=== PATIENT | male | born 2000 | race Caucasian/White ===

== ENCOUNTER 2024-08-11 11:36 | Inpatient (IN) | payer SELFPAY ==
[2024-08-11] VITALS (11 sets, daily range): BP systolic 106–146; BP diastolic 69–95; PULSE 80–100; RESP 14–18; TEMP 35.6–36.9; O2SAT 94–98; BMI 30.9; BMI 34.7
--- NOTE | 2024-08-11 12:43 | EDS_ITS ---
HPI <LILIA Tan - Last Filed: 08/11/24 15:48> History of Present Illness Chief Complaint: General Illness Narrative Narrative: Patient is a 24-year-old male with no significant medical history. Presenting to the emerged department for multiple complaints. Patient states that 3 to 4 days ago, the patient developed some blood blisters to his tongue, as well as the inner mucosa of his mouth. Patient states that some have went away but new keep appearing. Patient also states he has been having intermittent light nosebleeds over the last 3 to 4 days, as well as some blood in his urine. Patient went to [facility] who referred him to the emergency department. Patient denies any specific pain. Patient denies any back pain fever chills nausea or vomiting. Patient denies any history of any congenital diseases, blood disorders. PFSH <LILIA Tan - Last Filed: 08/11/24 15:48> PFSH Medical History no medical history Home Medications ?Medication ?Instructions ?Recorded ?Last Taken ?Type cholecalciferol (vitamin D3) PO DAILY supplement 08/11 Unknown History cyanocobalamin (vitamin B-12) PO DAILY 08/11/24 Unknow n History Allergy/AdvReac Type Severity Reaction Status Date / Time No Known Allergies Allergy Verified 08/11/24 11:37 Social History Smoking Status: Current every day smoker tobacco type: cigarettes ROS <LILIA Tan - Last Filed: 08/11/24 15:48> ROS ED ROS Narrative Constitutional: Negative for fever, chills, weight loss, weakness Eyes: Negative for vision loss, vision change, double vision ENT: Negative for any sore throat, ear pain, congestion. Positive for blood blisters to the tongue, inner cheeks, positive for epistaxis Cardiovascular: Negative for any chest pain, tightness, palpitations Respiratory: Negative for any cough, sputum production, hemoptysis, dyspnea, dyspnea on exertion, orthopnea Gastrointestinal: Negative for any abdominal pain, nausea, vomiting, diarrhea, constipation, blood in stool, blood in vomit : Negative for any urinary frequency, dysuria, retention, blood in urine Muscle skeletal: Negative for any neck pain, back pain Neurological: Negative for any headache, syncope, dizziness Skin: Negative for any rashes, itching, abrasions, lacerations Psychiatric: Negative for any depression, anxiety, stress, suicidal ideation, homicidal ideation Hematologic: Negative for any excessive bruising, easy bleeding EXAM <LILIA Tan - Last Filed: 08/11/24 15:48> Physical Exam Narrative Exam Narrative: Vital signs reviewed. HEET: Head normocephalic atraumatic, TMs clear bilaterally. Posterior pharynx is clear, moist mucous membranes. Nares showed dried blood. There is no active bleeding. Patient does have 2 blood blisters to the tongue, 1 to the left inner mucosa of the left cheek. I did look at pictures that he had on his phone, there were previous ones that have healed. Neck: Supple with no lymphadenopathy or tenderness. No signs of meningismus. Cardiac: Regular rate and rhythm no murmurs gallops or rubs, equal peripheral pulses bilaterally. Respiratory: Lungs clear to auscultation bilaterally. No chest tenderness. Abdomen: Soft, nontender, nondistended. No abdominal bruit or pulsatile masses. No hepatosplenomegaly Extremities: No peripheral edema, no signs of gross trauma or deformity. Active full range of motion of all extremities. Neuro: Cranial nerves II through XII intact, no focal neurological deficits. Skin: Clean dry and intact with no rash, purpura, petechiae, vesicles or pustules. Backs/flank: No CVA tenderness, no midline spinal tenderness, no deformity. Psych: Normal mood and affect. No SI, HI or acute psychosis. Const Vital Signs: 08/11/24 11:38 08/11/24 13:26 08/11/24 13:37 Temperature 98.3 F Temperature Source Oral Pulse Rate 89 80 Respiratory Rate 16 18 Respiratory Effort Normal Respiratory Pattern Normal Blood Pressure 140/87 H 135/88 H Blood Pressure Mean 104 103 Pulse Ox 98 98 Oxygen Delivery Method Room Air Room Air 08/11/24 15:00 Temperature Temperature Source Pulse Rate Respiratory Rate Respiratory Effort Respiratory Pattern Blood Pressure 125/73 H Blood Pressure Mean 89 Pulse Ox 96 Oxygen Delivery Method Positive well nourished and well developed General Appearance ED: well developed <Andrea Wilson MD - Last Filed: 08/11/24 18:25> Physical Exam Const Vital Signs: 08/11/24 11:38 08/11/24 13:26 08/11/24 13:37 Temperature 98.3 F Temperature Source Oral Pulse Rate 89 80 Respiratory Rate 16 18 Respiratory Effort Normal Respiratory Pattern Normal Blood Pressure 140/87 H 135/88 H Blood Pressure Mean 104 103 Pulse Ox 98 98 Oxygen Delivery Method Room Air Room Air 08/11/24 15:00 Temperature Temperature Source Pulse Rate Respiratory Rate Respiratory Effort Respiratory Pattern Blood Pressure 125/73 H Blood Pressure Mean 89 Pulse Ox 96 Oxygen Delivery Method MDM <Kenneth GarrettDIANAC - Last Filed: 08/11/24 15:48> [facility] Lab Data Labs: Laboratory Results - last 24 hr 08/11/24 08/11/24 12:15 13:31 WBC 8.3 RBC 4.70 Hgb 13.7 Hct 39.3 L MCV 83.6 MCH 29.1 MCHC 34.9 RDW Std Deviation 36.6 RDW Coeff of Kira 11.9 Plt Count < 2 L* MPV TNP Immature Gran % (Auto) 0.700 Neut % (Auto) 65.4 Lymph % (Auto) 20.4 [place] % (Auto) 10.4 H Eos % (Auto) 2.5 Baso % (Auto) 0.6 Absolute Neuts (auto) 5.4 Absolute Lymphs (auto) 1.70 Nucleated RBC % 0 Diff Path Review November foll PT 14.0 INR 1.1 APTT 26.2 Sodium 137 Potassium 3.8 Chloride 104 Carbon Dioxide 27.0 Anion Gap 5 BUN 11 Creatinine 0.92 Estim Creat Clear Calc 147.08 Est GFR (MDRD) Af Amer 127 Est GFR (MDRD) Non-Af 105 BUN/Creatinine Ratio 11.9 Glucose 99 Calcium 9.1 Total Bilirubin 1.00 AST 31 ALT 27 Alkaline Phosphatase 56 Total Protein 8.1 Albumin 4.2 Globulin 3.9 Albumin/Globulin Ratio 1.1 Urine Color Red Urine Clarity Turbid Urine pH 7.0 Ur Specific [place] 1.005 Urine Protein 500 H Urine Glucose (UA) Normal Urine Ketones Negative Urine Occult Blood 250 H Urine Nitrite Negative Urine Bilirubin Negative Urine Urobilinogen Normal Ur Leukocyte Esterase 100 H Urine RBC > 100 SEEN Urine WBC 0 SEEN Ur Squamous Epith Cells 0 SEEN Urine Bacteria 0 SEEN Urine Mucus 0 SEEN Treatment and Re-Evaluation :: Differential diagnosis includes however is not limited to: Thrombocytopenia, mouth trauma, mucosal dryness secondary to the weather, sinusitis Patient appears generally well, vital signs are stable, patient is nontoxic- appearing. Presenting to the emerged department for blood in his urine, nosebleeds and blood blisters to his mouth. Patient will receive a CBC, CMP, patient receive a urinalysis. Patient CBC showed hemoglobin 13.7, hematocrit 39.3, platelet count was less than 2, we did get a call from the laboratory. Patient's CMP was unremarkable, PTT, PT/INR will be ordered. Secondary this finding, I did reach out to Dr. Torres, he believes the patient will need to be admitted to the hospital. If the PTT/PT/INR are all within normal limits, the patient will receive 40 mg of IV dexamethasone as well as 1 unit of platelets. He did recommend admission. I did make the patient aware. Urinalysis did have some hematuria with occult blood 250, leukocyte Estrace 100, greater than 100 red blood cells. patient's coagulation panel shows a normal PTT, normal INR, normal APTT. At this time, patient will be admitted to the hospital. I did provide the patient with 40 mg of IV dexamethasone, as well as 1 unit of platelets. I spoke with the hospitalist to admit the patient. Patient was made aware. <Andrea Wilson MD - Last Filed: 08/11/24 18:25> [facility] MDM Narrative Medical decision making narrative: Dr. Wilson: I have personally performed a face to face assessment of the patient and have reviewed the DAVID Note. I performed a substantive portion of the visit including all aspects of the following. My patrick findings include: History is blood blisters in mouth and on tongue. Hematuria starting a few days ago, resolved then returned. Denies any significant past medical history, no increased bleeding. Started to have epistaxis as well. Exam is afebrile. Vital signs noted. Cardiovascular examination regular rate and rhythm. Lungs clear to auscultation bilaterally. Abdomen is soft and nontender without guarding or rebound. Positive bowel sounds. Neurological examination nonfocal and nonlateralizing. Skin examination does show blood blisters on tongue and and buccal mucosa. No other noted bleeding diathesis. Medical Decision Making: Differential diagnosis includes but not limited to liver failure with coagulopathy versus thrombocytopenia including ITP versus TTP. Check labs. Check UA. Given gross hematuria and thrombocytopenia, discussed with [facility] who recommended platelet transfusion and steroids. Does not require transfer currently. Discussed with hospitalist for admission. Disposition is admit in stable condition. Other additions or changes: [None] History & Record Review Discussion w/independent historian: Patient Lab Data Attestation: I reviewed the patient's lab results. Labs: Laboratory Results - last 24 hr 08/11/24 08/11/24 12:15 13:31 WBC 8.3 RBC 4.70 Hgb 13.7 Hct 39.3 L MCV 83.6 MCH 29.1 MCHC 34.9 RDW Std Deviation 36.6 RDW Coeff of Kira 11.9 Plt Count < 2 L* MPV TNP Immature Gran % (Auto) 0.700 Neut % (Auto) 65.4 Lymph % (Auto) 20.4 [place] % (Auto) 10.4 H Eos % (Auto) 2.5 Baso % (Auto) 0.6 Absolute Neuts (auto) 5.4 Absolute Lymphs (auto) 1.70 Nucleated RBC % 0 Diff Path Review May foll PT 14.0 INR 1.1 APTT 26.2 Sodium 137 Potassium 3.8 Chloride 104 Carbon Dioxide 27.0 Anion Gap 5 BUN 11 Creatinine 0.92 Estim Creat Clear Calc 147.08 Est GFR (MDRD) Af Amer 127 Est GFR (MDRD) Non-Af 105 BUN/Creatinine Ratio 11.9 Glucose 99 Calcium 9.1 Total Bilirubin 1.00 AST 31 ALT 27 Alkaline Phosphatase 56 Total Protein 8.1 Albumin 4.2 Globulin 3.9 Albumin/Globulin Ratio 1.1 Urine Color Red Urine Clarity Turbid Urine pH 7.0 Ur Specific [place] 1.005 Urine Protein 500 H Urine Glucose (UA) Normal Urine Ketones Negative Urine Occult Blood 250 H Urine Nitrite Negative Urine Bilirubin Negative Urine Urobilinogen Normal Ur Leukocyte Esterase 100 H Urine RBC > 100 SEEN Urine WBC 0 SEEN Ur Squamous Epith Cells 0 SEEN Urine Bacteria 0 SEEN Urine Mucus 0 SEEN Management Discussion w/another healthcare provider: Hospitalist and Epidemiology Internship Discharge Plan Dx/Rx/DC Orders Clinical Impression: Thrombocytopenia, Petechiae, Hematuria, Epistaxis Disposition Disposition: Acute Care Hospital [facility] Discharge Date/Time: 08/11/24 18:13
[2024-08-11 13:11] LABS: Absolute Neutrophil Count 5.4 X10^3/uL (2.0-7.7); Basophil# 0.05 X10^3/uL; Basophil% 0.6 % (0-1); Eosinophil# 0.21 X10^3/uL; Eosinophils% 2.5 % (0-5); Hematocrit 39.3 % (40-54); Hemoglobin 13.7 g/dL (13.0-16.5); Lymphocyte % 20.4 % (19-41); Mean Corp Hgb Conc 34.9 g/dL (32-36); Mean Corpuscular Hgb 29.1 pg (27.0-32.0); Mean Corpuscular Volume 83.6 fL (80-94); Monocyte# 0.87 X10^3/uL; Monocyte% 10.4 % (0-10); NRBC Flagged by Analyzer 0 % (0-5); Neutrophil # 5.44 X10^3/uL (2.7-7.7); Neutrophil % 65.4 % (47-70); POSITIVE COUNT YES; RBC Distribution Width CV 11.9 % (11.6-14.6); RBC Distribution Width SD 36.6 fl (35.1-43.9); White Blood Count 8.3 K/mm3 (4.4-11.0)
[2024-08-11 13:38] LABS: Bacteria 0 SEEN /hpf (None Seen); Mucous, Urine 0 SEEN /hpf (<or=2+); Squamous Epithelial Cells - UA 0 SEEN /hpf (0-5); White Blood Cells 0 SEEN /hpf (0-5)
[2024-08-11 13:44] LABS: Differential Indicated SCAN CRITERIA MET; Platelet Count < 2 K/mm3 (150-450)
[2024-08-11 13:48] LABS: Color, Urine Red (Yellow); Glucose, Dipstick Normal (Normal); Ketone-Dipstick Negative (Negative); Leukocyte Esterase-Dipstick 100 /ul (Negative); Nitrite-Dipstick Negative (Negative); Occult Blood-Urine 250 /ul (Negative); Protein-Dipstick 500 mg/dl (Negative); Specific Gravity, Urine 1.005 (1.002-1.030); Urine Bilirubin Dipstick Negative (Negative); Urine Clarity Turbid (Clear); Urine Urobilinogen Normal (Normal)
[2024-08-11 14:00] LABS: Red Blood Cells-Urine > 100 SEEN /hpf (0-5)
[2024-08-11 14:08] LABS: ALB/GLOB Ratio 1.1 RATIO (0.9-2.4); AST(SGOT) 31 U/L (15-37); Alanine Aminotransfer ALT/SGPT 27 U/L (16-61); Albumin, Serum 4.2 g/dL (3.2-5.0); Alkaline Phosphatase 56 U/L (45-117); Anion Gap 5 (5-15); BUN 11 mg/dL (7-18); BUN/Creat Ratio 11.9 RATIO (10-20); Calcium,Total 9.1 mg/dL (8.5-10.1); Chloride 104 mmol/L (98-107); Creatinine, Serum 0.92 mg/dL (0.70-1.30); EST Glomerular Filtration Rate 105 mL/min (>60); Est Glom Filt Rate - Afr Amer 127 mL/min (>60); Estimated Creatinine Clearance 147.08 ml/min; Globulin 3.9 g/dL (2.2-4.2); Glucose 99 mg/dL (74-106); Potassium 3.8 mmol/L (3.5-5.1); Protein, Total 8.1 g/dL (6.4-8.2); Sodium Level 137 mmol/L (136-145)
[2024-08-11 15:21] LABS: International Normalized Ratio 1.1
[2024-08-11 15:22] LABS: Partial Thromboplast Time 26.2 Seconds (24.1-36.2)
--- NOTE | 2024-08-11 15:39 | PCM.HP.STD ---
[facility] - General General Date of Service: 08/11/24 Chief Complaint: Nosebleeds and hematuria HPI Narrative JOI MORRIS, is a 24 M who presented to [facility] ED on 08/11/2024 with recent nosebleeds and hematuria. On labs he was found to have a platelet count less than 2. Patient has no significant past medical history. Lives in [place] with his family. Denies any family history of bleeding issues that he is aware of. States that on Wednesday he had a nosebleed and noticed that he had some small blood blisters in his mouth. He then noticed blood in the urine starting yesterday and continuing into today, so he came in for further evaluation. In the ED he was hemodynamically stable on room air. Hemoglobin 13.7, WBC count 8.3, INR 1.1, PT 14.0 (normal). CMP was normal. UA showed 500 protein, 250 blood with greater than 100 RBCs, 100 leukocyte esterase, 0 bacteria. Case was discussed with Dr. Torres who recommended giving patient a dose of IV Decadron 40 mg and a unit of platelets. He also recommended admission for further management, so hospitalist was contacted. I saw the patient at bedside in the ED. He was sitting up comfortably in bed, conversing normally, in no acute distress. Denies any recent illnesses. Feeling well currently, denies any acute concerns. Will be admitted for further management. [facility] Medical History no medical history Home Medications ?Medication ?Instructions ?Recorded ?Last Taken ?Type cholecalciferol (vitamin D3) PO DAILY supplement 08/11/24 Unknown History cyanocobalamin (vitamin B-12) PO DAILY 08/11/24 Unknown History Allergy/AdvReac Type Severity Reaction Status Date / Time No Known Allergies Allergy Verified 08/11/24 11:37 Social History Smoking Status: Current every day smoker tobacco type: cigarettes ROS Constitutional Constitutional: Denies chills, fatigue, fever(s) or weakness Eyes Eyes: Denies change in vision ENT HEENT: Reports epistaxis; Denies nasal congestion, nasal discharge or sore throat Cardiovascular Cardiovascular: Denies chest pain Respiratory/Chest Respiratory/Chest: Denies shortness of breath at rest Gastrointestinal Gastrointestinal: Denies abdominal pain Genitourinary Genitourinary: Reports hematuria; Denies dysuria Musculoskeletal Musculoskeletal: Denies arthralgias or myalgias Neurologic Neurologic: Denies dizziness or headache(s) Hematologic/Lymphatic Hematologic/Lymphatic: Reports easy bleeding Vital Signs Vital Signs Vital Signs: 08/11/24 11:38 08/11/24 13:26 08/11/24 13:37 Temperature 98.3 F Temperature Source Oral Pulse Rate 89 80 Respiratory Rate 16 18 Respiratory Effort Normal Respiratory Pattern Normal Blood Pressure 140/87 H 135/88 H Blood Pressure Mean 104 103 Pulse Ox 98 98 Oxygen Delivery Method Room Air Room Air 08/11/24 15:00 Temperature Temperature Source Pulse Rate Respiratory Rate Respiratory Effort Respiratory Pattern Blood Pressure 125/73 H Blood Pressure Mean 89 Pulse Ox 96 Oxygen Delivery Method Weight Weight: 100.698 kg Body Mass Index (BMI) 30.9 Physical Exam Const alert, oriented x3, no apparent distress, healthy appearing and well nourished Constitutional Narrative: Pleasant young male, class I obesity, sitting up comfortably in bed, conversing normally, in no acute distress. General Appearance: cooperative, comfortable, well kempt and well developed HEENT normocephalic, head/scalp atraumatic, hearing grossly normal bilaterally, nasal mucous membranes and turbinates normal and moist oral mucous membranes HEENT Narrative: Dried blood noted in the right nostril. Eyes PERRL, EOMs intact bilaterally and conjunctivae normal Neck full ROM Chest inspection of chest normal Resp normal respiratory effort, normal air movement, no use of accessory muscles and clear to auscultation bilaterally Cardio regular rate, regular rhythm, no murmurs and peripheral pulses 2+ throughout GI normal to inspection, nondistended, normoactive bowel sounds, soft to palpation, non-tender and non-distended Back/Spine normal ROM Extremity normal to inspection, full ROM and no pedal edema Skin no rashes or lesions noted Neuro moves all extremities and no focal motor deficits Speech: speech normal Motor Exam: strength 5/5 throughout Psych mental status grossly normal Results Lab / Micro Data 08/11/24 12:15 08/11/24 12:15 Labs: Laboratory Results - last 24 hr 08/11/24 12:15: WBC 8.3, RBC 4.70, Hgb 13.7, Hct 39.3 L, MCV 83.6, MCH 29.1, MCHC 34.9, RDW Std Deviation 36.6, RDW Coeff of Kira 11.9, Plt Count < 2 L*, MPV TNP, Immature Gran % (Auto) 0.700, Neut % (Auto) 65.4, Lymph % (Auto) 20.4, [place] % (Auto) 10.4 H, Eos % (Auto) 2.5, Baso % (Auto) 0.6, Absolute Neuts (auto) 5.4, Absolute Lymphs (auto) 1.70, Nucleated RBC % 0, Diff Path Review November foll, PT 14.0, INR 1.1, APTT 26.2, Sodium 137, Potassium 3.8, Chloride 104, Carbon Dioxide 27.0, Anion Gap 5, BUN 11, Creatinine 0.92, Estim Creat Clear Calc 147.08, Est GFR (MDRD) Af Amer 127, Est GFR (MDRD) Non-Af 105, BUN/Creatinine Ratio 11.9, Glucose 99, Calcium 9.1, Total Bilirubin 1.00, AST 31, ALT 27, Alkaline Phosphatase 56, Total Protein 8.1, Albumin 4.2, Globulin 3.9, Albumin/Globulin Ratio 1.1 08/11/24 13:31: Urine Color Red, Urine Clarity Turbid, Urine pH 7.0, Ur Specific [place] 1.005, Urine Protein 500 H, Urine Glucose (UA) Normal, Urine Ketones Negative, Urine Occult Blood 250 H, Urine Nitrite Negative, Urine Bilirubin Negative, Urine Urobilinogen Normal, Ur Leukocyte Esterase 100 H, Urine RBC > 100 SEEN, Urine WBC 0 SEEN, Ur Squamous Epith Cells 0 SEEN, Urine Bacteria 0 SEEN, Urine Mucus 0 SEEN Assessment & Plan Assessment/Plan (1) Thrombocytopenia: (2) Hematuria: PLAN: Plan Patient is a 24-year-old male who presented [facility] ED on 08/11/2024 with nosebleeds and hematuria. 1. New onset severe thrombocytopenia with epistaxis and hematuria ? Admit under inpatient status to PCU. Hematology consulted. Platelet count less than 2 on admit, CBC otherwise unremarkable. Unclear etiology at this time. No recent infections, no drug exposures, no liver disease noted. No concern for concurrent thrombosis. ITP is certainly a possibility. Presume that hematuria is secondary to very low platelet count. HIV and hepatitis C ordered. Vitamin B12, folate ordered. Given dose of IV Decadron 40 mg in the ED and unit of platelets ordered. Follow-up a.m. CBC. Appreciate further hematology recommendations. 2. Class I obesity ? BMI 31 on admit. Encouraged lifestyle medications. DVT prophylaxis: SCDs CODE STATUS: Full code, verified Expected disposition: Home, 2 to 3 days Total clinical time spent by myself addressing the patient's medical issues, reviewing all the data, and collaborating with patient's care team: 55 minutes. Charges/Coding Visit Charges Inpatient E&M: 53813 Init Hosp L2
[2024-08-11] MEDS: dexAMETHasone 20 MG/5 ML Vial 40 MG IV (15:43)
--- NOTE | 2024-08-11 18:11 | CASEMGMT ---
Care Management Face to Face with patient for initial transition planning/care coordination assessment in the ED. 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. Patient alert and oriented. Patient willing to participate in assessment and is able to answer all questions appropriately. Care providers, pharmacy, and demographics verified. Admitting Diagnosis: New onset severe thrombocytopenia with epistaxis and hematuria Other diagnosis history: no significant medical hx PCP: none, but accepted resources. Specialists: none Preferred Pharmacy: [facility] Insurance: none; denied need for Medicaid application. Prescription Benefit: none Living Will/HPOA: none, denied need for information, but did request to be educated on what advance directives were (which was done). LNOK: parents, Clement and Mia Yañez (currently living in [place]). No siblings. Living Arrangements: by self, 1 story home, no steps to enter. Independent with all ADLs Transportation: drives self DME: none HHC: none SNF/Rehab: none Community Resources: none Behavioral Health History: denies. Patient goals: Patient wishes to discharge home, denies need for home health care at this time. Patient states he has no further needs or concerns at this time. Disposition Plan: admission to acute; RN CM/SW to follow for discharge planning needs that may arise. Jyotsna Bergeron, ENTERTAINMENT DANCER, VOCATIONAL PLACEMENT SPECIALIST
[2024-08-11] MEDS: Immune Globulin 20 gm 20 GM/200 ML VIAL IV (23:15)
[2024-08-12] VITALS (7 sets, daily range): BP systolic 111–137; BP diastolic 62–72; PULSE 88–106; RESP 16; TEMP 35.7–36.8; O2SAT 95–98
[2024-08-12] MEDS: Immune Globulin 20 gm 20 GM/200 ML VIAL IV ×3 (01:45→19:35)
[2024-08-12] MEDS: Immune Globulin 10 gm 10 GM/100 ML VIAL IV ×5 (03:49→23:43)
[2024-08-12] MEDS: Immune Globulin 5 GM 5 GM/50 ML VIAL IV (04:19)
[2024-08-12 05:57] LABS: Absolute Lymphocyte Count 0.64 X10^3/uL (0.83-4.51); Absolute Neutrophil Count 8.3 X10^3/uL (2.0-7.7); Eosinophil# 0.01 X10^3/uL; Eosinophils% 0.1 % (0-5); Hematocrit 36.1 % (40-54); Hemoglobin 12.7 g/dL (13.0-16.5); Lymphocyte # 0.64 X10^3/ul (0.83-4.51); Mean Corp Hgb Conc 35.2 g/dL (32-36); Mean Corpuscular Hgb 29.1 pg (27.0-32.0); Mean Corpuscular Volume 82.6 fL (80-94); Monocyte# 0.17 X10^3/uL; Monocyte% 1.8 % (0-10); NRBC Flagged by Analyzer 0 % (0-5); Neutrophil % 90.3 % (47-70); POSITIVE COUNT YES; RBC Distribution Width CV 11.9 % (11.6-14.6); RBC Distribution Width SD 35.1 fl (35.1-43.9); Red Blood Count 4.37 M/mm3 (4.6-6.2); White Blood Count 9.2 K/mm3 (4.4-11.0)
[2024-08-12 06:03] LABS: Differential Indicated SCAN CRITERIA MET; Platelet Count 2 K/mm3 (150-450)
[2024-08-12 06:35] LABS: Anion Gap 7 (5-15); BUN 12 mg/dL (7-18); BUN/Creat Ratio 10.3 RATIO (10-20); Chloride 103 mmol/L (98-107); Creatinine, Serum 1.16 mg/dL (0.70-1.30); EST Glomerular Filtration Rate 81 mL/min (>60); Est Glom Filt Rate - Afr Amer 98 mL/min (>60); Estimated Creatinine Clearance 123.33 ml/min; Glucose 314 mg/dL (74-106); Potassium 3.8 mmol/L (3.5-5.1); Sodium Level 134 mmol/L (136-145)
[2024-08-12] MEDS: 0.9% Normal Saline (1000mL) 1,000 ML 100 ML IV ×2 (06:53→17:03)
[2024-08-12 07:10] LABS: Platelet Estimate MKD DEC (ADEQ)
--- NOTE | 2024-08-12 07:58 | PCM.PN.HOSP ---
Reason for Visit Reason for Visit: Diagnoses Thrombocytopenia, unspecified (08/11/24) Hematuria, unspecified (08/11/24) Objective Data Objective Data Vital Signs: Vital Signs Temp Pulse Resp BP Pulse Ox O2 Del Method 96.8 F L 88 16 112/67 97 Room Air 08/12/24 04:00 08/12/24 04:00 08/12/24 04:00 08/12/24 04:00 08/12/24 04:00 08/12/24 04:00 Oxygen Delivery Method Room Air Weight: 249 lb Body Mass Index (BMI) 34.7 Intake & Output: Intake and Output for Last 24 Hours 08/10/24 08/11/24 08/12/24 23:59 23:59 23:59 Intake Total 35 / 35 730.00 / 730.00 Balance 35 / 35 730.00 / 730.00 Lab / Micro Data 08/12/24 03:47 08/12/24 03:47 Labs: Laboratory Results - last 24 hr 08/11/24 12:15: WBC 8.3, RBC 4.70, Hgb 13.7, Hct 39.3 L, MCV 83.6, MCH 29.1, MCHC 34.9, RDW Std Deviation 36.6, RDW Coeff of Kira 11.9, Plt Count < 2 L*, MPV TNP, Immature Gran % (Auto) 0.700, Neut % (Auto) 65.4, Lymph % (Auto) 20.4, [place] % (Auto) 10.4 H, Eos % (Auto) 2.5, Baso % (Auto) 0.6, Absolute Neuts (auto) 5.4, Absolute Lymphs (auto) 1.70, Nucleated RBC % 0, Diff Path Review November, PT 14.0, INR 1.1, APTT 26.2, Sodium 137, Potassium 3.8, Chloride 104, Carbon Dioxide 27.0, Anion Gap 5, BUN 11, Creatinine 0.92, Estim Creat Clear Calc 147.08, Est GFR (MDRD) Af Amer 127, Est GFR (MDRD) Non-Af 105, BUN/Creatinine Ratio 11.9, Glucose 99, Calcium 9.1, Total Bilirubin 1.00, AST 31, ALT 27, Alkaline Phosphatase 56, Total Protein 8.1, Albumin 4.2, Globulin 3.9, Albumin/Globulin Ratio 1.1, Folate 70.10 H 08/11/24 13:31: Urine Color Red, Urine Clarity Turbid, Urine pH 7.0, Ur Specific [place] 1.005, Urine Protein 500 H, Urine Glucose (UA) Normal, Urine Ketones Negative, Urine Occult Blood 250 H, Urine Nitrite Negative, Urine Bilirubin Negative, Urine Urobilinogen Normal, Ur Leukocyte Esterase 100 H, Urine RBC > 100 SEEN, Urine WBC 0 SEEN, Ur Squamous Epith Cells 0 SEEN, Urine Bacteria 0 SEEN, Urine Mucus 0 SEEN 08/11/24 15:41: Blood Type A NEGATIVE 08/12/24 03:47: WBC 9.2, RBC 4.37 L, Hgb 12.7 L, Hct 36.1 L, MCV 82.6, MCH 29.1, MCHC 35.2, RDW Std Deviation 35.1, RDW Coeff of Kira 11.9, Plt Count 2 L*, MPV TNP, Immature Gran % (Auto) 0.800, Neut % (Auto) 90.3 H, Lymph % (Auto) 7.0 L, [place] % (Auto) 1.8, Eos % (Auto) 0.1, Baso % (Auto) 0.0, Absolute Neuts (auto) 8.3 H, Absolute Lymphs (auto) 0.64 L, Nucleated RBC % 0, Diff Path Review November, Platelet Estimate MKD DEC, Sodium 134 L, Potassium 3.8, Chloride 103, Carbon Dioxide 24.0, Anion Gap 7, BUN 12, Creatinine 1.16, Estim Creat Clear Calc 123.33, Est GFR (MDRD) Af Amer 98, Est GFR (MDRD) Non-Af 81, BUN/Creatinine Ratio 10.3, Glucose 314 H, Calcium 9.0 Physical Exam Narrative Seen and examined. Patient denies any chronic autoimmune condition in the family. Does not have personal medical history. He had flulike symptoms about 3 weeks ago with mild cough muscle aches, nausea and diarrhea which got resolved Physical exam General: Alert, Oriented x3, Cooperative. BMI 34.7 kg/m? HEENT: Atraumatic, PERRLA, EOMI, Normocephalic Oral: No Gingival or Mucosal Lesions/ Ulcerations Neck: Supple, No JVD, Negative Carotid Bruits Chest wall/Lungs: Air entry diminished in bilateral lung bases. No crepitation/rhonchi Cardiovascular: Regular rate, Regular Rhythm, Normal S1, Normal S2, No M/G/R Abdomen: Bowel Sounds Present, Soft, Non Tender, Non-Distended : No dysuria. No renal angle tenderness. No suprapubic tenderness. Extremities: No edema, Capillary Refill Less than 3 Seconds Skin: Petechial rash from thigh distally. Not in other part of the body Musculoskeletal: No Tenderness to Palpation of Joints or Extremities Neurological: Cranial nerves II-XII grossly intact, DTR 2+/4. No acute focal neurological deficit. Psych/Mental Status: Normal Affect, Appropriate. Assessment & Plan Assessment/Plan (1) Thrombocytopenia: (2) Hematuria: PLAN: Plan Patient is a 24-year-old male who presented [facility] ED on 08/11/2024 with nosebleeds and hematuria. 1. New onset severe thrombocytopenia with epistaxis and hematuria and petechial rash in lower extremities ? Admit under inpatient status to PCU. Hematology consulted. Platelet count less than 2 on admit, CBC otherwise unremarkable. Had a recent flulike infection about 3 weeks ago but has resolved now. Denies personal autoimmune disease. No concern for concurrent thrombosis. ITP is certainly a possibility. Presume that hematuria is secondary to very low platelet count. HIV and hepatitis C ordered. Vitamin B12, folate ordered. Given dose of IV Decadron 40 mg in the ED and unit of platelets ordered. Follow-up a.m. CBC. Appreciate further hematology recommendations. 08/12: Patient's blood Adtralza still 1999. Probably did not get the platelet transfusion yet. On dexamethasone 40 mg daily. On PPI protection. 2. Class I obesity ? BMI 31 on admit. Encouraged lifestyle medications. DVT prophylaxis: SCDs CODE STATUS: Full code, verified Charges/Coding Visit Charges Inpatient E&M: 91490 Subs Hosp L2
[2024-08-12] MEDS: dexAMETHasone 4 MG Tablet 40 MG PO (09:47)
[2024-08-12] MEDS: Pantoprazole Sodium 40 MG Tablet PO (09:47)
[2024-08-12 10:41] LABS: Vitamin B12 750 pg/mL (211-911)
[2024-08-12 11:06] LABS: HIV - WCH Non-Reactive (Nonreactive)
[2024-08-12 17:28] LABS: Absolute Lymphocyte Count 0.77 X10^3/uL (0.83-4.51); Absolute Neutrophil Count 16.7 X10^3/uL (2.0-7.7); Basophil# 0.03 X10^3/uL; Basophil% 0.2 % (0-1); Hematocrit 33.8 % (40-54); Hemoglobin 12.3 g/dL (13.0-16.5); Lymphocyte # 0.77 X10^3/ul (0.83-4.51); Lymphocyte % 4.2 % (19-41); Mean Corp Hgb Conc 36.4 g/dL (32-36); Mean Corpuscular Hgb 29.7 pg (27.0-32.0); Mean Corpuscular Volume 81.6 fL (80-94); Mean Platelet Vol. 14.1 fl (6.2-12.0); Monocyte# 0.51 X10^3/uL; Monocyte% 2.8 % (0-10); NRBC Flagged by Analyzer 0 % (0-5); Neutrophil # 16.73 X10^3/uL (2.7-7.7); POSITIVE COUNT YES; RBC Distribution Width SD 35.2 fl (35.1-43.9); Red Blood Count 4.14 M/mm3 (4.6-6.2); White Blood Count 18.2 K/mm3 (4.4-11.0)
--- NOTE | 2024-08-12 17:30 | CON.PCM.ON_ITS ---
Assessment & Plan Assessment/Plan (1) Thrombocytopenia: Status: Acute Code(s): D69.6 - Thrombocytopenia, unspecified Plan: 24-year-old male with acute severe isolated thrombocytopenia, patient reported stomach virus with diarrhea 3 weeks earlier for which he used [id number] Pepto-Bismol but no other medications. Patient presents with purpura, oral mucosal purpura, hematuria and melena but is hemodynamically stable. 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 High-dose Decadron 40 mg daily were started August 11, 2024 in the emergency room, the first dose was given IV, the plan is for a total of 4 days of high-dose Decadron (last dose will be August 14, 2024). 2. Platelet transfusion for platelets less than 10K. 3. IVIG (1 g/kg body weight) the patient received day 1 the night of August 11 into the early hours of August 12 morning. If there is no response we will repeat the same dose this evening of August 12, 2024. If there is still no response after 2 days of IVIG that diagnosis of ITP will be revisited. And further workup including bone marrow biopsy will be warranted. 4. IV fluids ordered for 24 hours and patient encouraged to maintain good water intake to avoid clot retention. Patient was seen with his family, impression and plan discussed. Jorge Torres MD Shotgun Shell Assembly Machine Operator, [facility] Divisions of Medical Oncology & Hematology Department of Internal Medicine [place] [phone] This note was generated using a voice recognition system software. Although it was reviewed by the author prior to finalization, it may still contain incorrect words, spelling, and punctuation that were not noted when reviewing prior to saving. If a clinically significant typo or inaccurately typed phrase is noted, please notify the author. HPI Consult Data Date of Service:: 08/12/24 PCP / Referring Provider: No Primary Care Phys Attending: Dr. Marc Amaya MD Chief Complaint Chief Complaint: Bruises, epistaxis, bloodstained gum, hematuria and melena History of Present Illness History of Present Illness: 24-year-old male who was in his usual state of health until some 3 weeks earlier when he developed an acute stomach virus with diarrhea that lasted for a few days, self treated with [id number] Pepto-Bismol and resolved. Over the few days prior to his hospitalization on August 11, 2024 he noticed excessive bruising, bruising on his gums, nosebleed, hematuria and melena. Throughout the illness he has had no fevers, no headaches or EQUINE VET symptoms. Advanced Directives Power of Pound Attendant: No Living Will: No PFSH Medical History no medical history Home Medications ?Medication ?Instructions ?Recorded ?Last Taken ?Type cholecalciferol (vitamin D3) PO DAILY supplement 08/11 Unknown History cyanocobalamin (vitamin B-12) PO DAILY 08/11/24 Unknow n History Allergy/AdvReac Type Severity Reaction Status Date / Time No Known Allergies Allergy Verified 08/11/24 11:37 Social History Smoking Status: Current every day smoker tobacco type: cigarettes ROS Constitutional Constitutional: Denies chills, fatigue or fever(s) ENT HEENT: Reports other Details: See HPI Cardiovascular Cardiovascular: Denies dyspnea Respiratory/Chest Respiratory/Chest: Denies hemoptysis Gastrointestinal Gastrointestinal: Reports melena; Denies abdominal pain, diarrhea or nausea Genitourinary Genitourinary: Reports change in urinary stream and hematuria Musculoskeletal Musculoskeletal: Denies extremity pain or muscle weakness Integumentary Integumentary: Reports unusual bruising Neurologic Neurologic: Denies abnormal speech, focal weakness, headache(s), numbness or other visual disturbances Hematologic/Lymphatic Hematologic/Lymphatic: Reports easy bleeding and easy bruising; Denies lymphadenopathy Physical Exam Narrative ECOG 0 Const alert, oriented x3 and no apparent distress General Appearance: cooperative Nutritional Appearance: obese HEENT HEENT Narrative: Oral mucosa purpura Eyes no scleral icterus Neck no lymphadenopathy Lymph Lymphatic: no lymphadenopathy noted GI soft to palpation, non-tender and no masses Palpation: Negative for splenomegaly Extremity no clubbing, cyanosis or edema Skin General Skin Exam: ecchymosis and petechiae Neuro CN's II-XII intact bilaterally, moves all extremities and no focal motor deficits Psych mental status grossly normal Vital Signs Temperature 98 F 08/12/24 15:39 Temperature Source Oral 08/12/24 15:39 Pulse Rate 100 08/12/24 15:39 Pulse Strength Weak (1+) 08/12/24 10:00 Respiratory Rate 16 08/12/24 15:39 Respiratory Effort Normal, Non-Labored 08/12/24 15:06 Respiratory Depth Normal 08/12/24 15:06 Respiratory Pattern Normal 08/12/24 15:06 Blood Pressure 122/68 H 08/12/24 15:39 Blood Pressure Mean 86 08/12/24 15:39 Blood Pressure Source Monitor 08/12/24 15:39 Blood Pressure Position Semi-Fowlers 08/12/24 15:39 Blood Pressure Location Right Forearm 08/12/24 15:39 Pulse Ox 97 08/12/24 15:39 Oxygen Delivery Method Room Air 08/12/24 15:39 Laboratory Results - last 24 hr 08/11/24 12:15: Folate 70.10 H 08/11/24 15:41: Blood Type A NEGATIVE 08/11/24 18:05: Vitamin B12 750, HIV 1&2 Antibody Non-Reactive 08/12/24 03:47: WBC 9.2, RBC 4.37 L, Hgb 12.7 L, Hct 36.1 L, MCV 82.6, MCH 29.1, MCHC 35.2, RDW Std Deviation 35.1, RDW Coeff of Kira 11.9, Plt Count 2 L*, MPV TNP, Immature Gran % (Auto) 0.800, Neut % (Auto) 90.3 H, Lymph % (Auto) 7.0 L, [place] % (Auto) 1.8, Eos % (Auto) 0.1, Baso % (Auto) 0.0, Absolute Neuts (auto) 8.3 H, Absolute Lymphs (auto) 0.64 L, Nucleated RBC % 0, Diff Path Review November, Platelet Estimate MKD DEC, Sodium 134 L, Potassium 3.8, Chloride 103, Carbon Dioxide 24.0, Anion Gap 7, BUN 12, Creatinine 1.16, Estim Creat Clear Calc 123.33, Est GFR (MDRD) Af Amer 98, Est GFR (MDRD) Non-Af 81, BUN/Creatinine Ratio 10.3, Glucose 314 H, Calcium 9.0 Peripheral blood smear reviewed by myself shows virtual absence of platelets, normal erythroid and myeloid elements, no immature forms Laboratory Results 08/12/24 08/11/24 03:47 12:15 WBC 9.2 8.3 Hgb 12.7 L 13.7 Plt Count 2 L* < 2 L* PT 14.0 APTT 26.2 Creatinine 1.16 0.92
[2024-08-12 17:40] LABS: Platelet Count 17 K/mm3 (150-450)
[2024-08-12 17:45] LABS: Platelet Estimate MKD DEC (ADEQ); Red Cell Morphology NORM C+C NORMAL (NORM C&C)
[2024-08-12 17:46] LABS: Differential Indicated SCAN CRITERIA MET
[2024-08-13] MEDS: Immune Globulin 10 gm 10 GM/100 ML VIAL IV ×3 (00:15→01:36)
[2024-08-13 03:00] VITALS: BP 119/68; PULSE 81; RESP 16; TEMP 35.9; O2SAT 97
[2024-08-13 06:36] LABS: Absolute Lymphocyte Count 0.99 X10^3/uL (0.83-4.51); Absolute Neutrophil Count 14.6 X10^3/uL (2.0-7.7); Basophil# 0.03 X10^3/uL; Basophil% 0.2 % (0-1); Hematocrit 33.1 % (40-54); Lymphocyte # 0.99 X10^3/ul (0.83-4.51); Mean Corp Hgb Conc 36.3 g/dL (32-36); Mean Corpuscular Hgb 30.8 pg (27.0-32.0); Mean Corpuscular Volume 84.9 fL (80-94); Monocyte# 0.79 X10^3/uL; Monocyte% 4.8 % (0-10); NRBC Flagged by Analyzer 0 % (0-5); Neutrophil # 14.56 X10^3/uL (2.7-7.7); Neutrophil % 88.2 % (47-70); POSITIVE COUNT YES; RBC Distribution Width CV 12.1 % (11.6-14.6); RBC Distribution Width SD 36.4 fl (35.1-43.9); White Blood Count 16.5 K/mm3 (4.4-11.0)
[2024-08-13 06:42] LABS: Differential Indicated SCAN CRITERIA MET; Platelet Count 44 K/mm3 (150-450)
--- NOTE | 2024-08-13 06:51 | NURSING ---
platelets of [address] higgins, he stated patient can be d/c tomorrow, on 08/14 after his decadron dose is given with a one week follow up
[2024-08-13 07:14] LABS: Pathologist Review May foll; Platelet Estimate MKD DEC (ADEQ)
[2024-08-13 08:07] LABS: HEPATITIS B SURFACE AG Negative (Negative); Hep C Antibodies Non Reactive (Non Reactive); Hepatitis A IgM Antibody Negative (Negative); Hepatitis B Core AB IgM Negative (Negative)
[2024-08-13 09:00] VITALS: BP 124/72; PULSE 74; RESP 14; TEMP 36.4; O2SAT 95
[2024-08-13] MEDS: dexAMETHasone 4 MG Tablet 40 MG PO (09:04)
[2024-08-13] MEDS: Pantoprazole Sodium 40 MG Tablet PO (09:04)
[2024-08-13] MEDS: 0.9% Normal Saline (1000mL) 1,000 ML 100 ML IV (09:38)
--- NOTE | 2024-08-13 13:13 | PCM.PN.HOSP ---
Reason for Visit Reason for Visit: Diagnoses Thrombocytopenia, unspecified (08/11/24) Hematuria, unspecified (08/11/24) Objective Data Objective Data Vital Signs: Vital Signs Temp Pulse Resp BP Pulse Ox O2 Del Method 97.6 F L 74 14 124/72 H 95 Room Air 08/13/24 09:00 08/13/24 09:00 08/13/24 09:00 08/13/24 09:00 08/13/24 09:00 08/13/24 09:00 Oxygen Delivery Method Room Air Weight: 249 lb Body Mass Index (BMI) 34.7 Intake & Output: Intake and Output for Last 24 Hours 08/11/24 08/12/24 08/13/24 23:59 23:59 23:59 Intake Total 35 / 35 2821.75 / 2821.75 1121.67 / 1121.67 Balance 35 / 35 2821.75 / 2821.75 1121.67 / 1121.67 Lab / Micro Data 08/13/24 05:57 08/12/24 03:47 Labs: Laboratory Results - last 24 hr 08/11/24 18:05: Hepatitis A IgM Ab Negative, Hep Bs Antigen Negative, Hep B Core IgM Ab Negative, Hepatitis C Ab (EIA) Non Reactive, Hep C Ab Comment Comment 08/12/24 17:12: WBC 18.2 H, RBC 4.14 L, Hgb 12.3 L, Hct 33.8 L, MCV 81.6, MCH 29.7, MCHC 36.4 H, RDW Std Deviation 35.2, RDW Coeff of Kira 12.0, Plt Count 17 L*, MPV 14.1 H, Immature Gran % (Auto) 0.800, Neut % (Auto) 92.0 H, Lymph % (Auto) 4.2 L, [place] % (Auto) 2.8, Eos % (Auto) 0.0, Baso % (Auto) 0.2, Absolute Neuts (auto) 16.7 H, Absolute Lymphs (auto) 0.77 L, Nucleated RBC % 0, Diff Path Review November, Platelet Estimate MKD DEC, RBC Morphology NORM C+C 08/13/24 05:57: WBC 16.5 H, RBC 3.90 L, Hgb 12.0 L, Hct 33.1 L, MCV 84.9, MCH 30.8, MCHC 36.3 H, RDW Std Deviation 36.4, RDW Coeff of Kira 12.1, Plt Count 44 L*, MPV 13.0 H, Immature Gran % (Auto) 0.800, Neut % (Auto) 88.2 H, Lymph % (Auto) 6.0 L, [place] % (Auto) 4.8, Eos % (Auto) 0.0, Baso % (Auto) 0.2, Absolute Neuts (auto) 14.6 H, Absolute Lymphs (auto) 0.99, Nucleated RBC % 0, Diff Path Review November, Platelet Estimate MKD DEC Physical Exam Narrative Seen and examined. Patient has petechial rash on the lower extremity up to middle of thigh Patient denies any chronic autoimmune condition in the family. Does not have personal medical history. He had flulike symptoms about 3 weeks ago with mild cough muscle aches, nausea and diarrhea which got resolved Physical exam General: Alert, Oriented x3, Cooperative. BMI 34.7 kg/m? HEENT: Atraumatic, PERRLA, EOMI, Normocephalic Oral: No Gingival or Mucosal Lesions/ Ulcerations Neck: Supple, No JVD, Negative Carotid Bruits Chest wall/Lungs: Air entry diminished in bilateral lung bases. No crepitation/rhonchi Cardiovascular: Regular rate, Regular Rhythm, Normal S1, Normal S2, No M/G/R Abdomen: Bowel Sounds Present, Soft, Non Tender, Non-Distended : No dysuria. No renal angle tenderness. No suprapubic tenderness. Extremities: No edema, Capillary Refill Less than 3 Seconds Skin: Petechial rash from thigh distally. Not in other part of the body Musculoskeletal: No Tenderness to Palpation of Joints or Extremities Neurological: Cranial nerves II-XII grossly intact, DTR 2+/4. No acute focal neurological deficit. Psych/Mental Status: Normal Affect, Appropriate. Assessment & Plan Assessment/Plan (1) Thrombocytopenia: (2) Hematuria: PLAN: Plan Patient is a 24-year-old male who presented [facility] ED on 08/11/2024 with nosebleeds and hematuria. 1. New onset severe thrombocytopenia with epistaxis and hematuria and petechial rash in lower extremities ? Admit under inpatient status to PCU. Hematology consulted. Platelet count less than 2 on admit, CBC otherwise unremarkable. Had a recent flulike infection about 3 weeks ago but has resolved now. Denies personal autoimmune disease. No concern for concurrent thrombosis. ITP is certainly a possibility. Presume that hematuria is secondary to very low platelet count. HIV and hepatitis C ordered. Vitamin B12, folate ordered. Given dose of IV Decadron 40 mg in the ED and unit of platelets ordered. Follow-up a.m. CBC. Appreciate further hematology recommendations. 08/12: Patient's blood platelet count still 2000. Probably did not get the platelet transfusion yet. On dexamethasone 40 mg daily. On PPI protection. 2: Platelet count improved to 17,000 after 1 unit of platelet FACC yesterday. It is better today 44,000. Continue to monitor platelet count. Nursing staff said Dr. Torres will follow him in the office after 1 week. 2. Class I obesity ? BMI 31 on admit. Encouraged lifestyle medications. DVT prophylaxis: SCDs CODE STATUS: Full code, verified Charges/Coding Visit Charges Inpatient E&M: 76064 Subs Hosp L2
[2024-08-13 14:39] VITALS: BP 143/85; PULSE 84; RESP 18; TEMP 36.4; O2SAT 97
[2024-08-13 20:30] VITALS: BP 138/67; PULSE 74; RESP 14; TEMP 36.6; O2SAT 97
[2024-08-14 02:47] VITALS: BP 105/52; PULSE 73; RESP 16; TEMP 36.7; O2SAT 97
[2024-08-14 08:24] LABS: Absolute Lymphocyte Count 1.24 X10^3/uL (0.83-4.51); Absolute Neutrophil Count 13.1 X10^3/uL (2.0-7.7); Basophil# 0.04 X10^3/uL; Basophil% 0.3 % (0-1); Hematocrit 33.9 % (40-54); Hemoglobin 12.2 g/dL (13.0-16.5); Lymphocyte # 1.24 X10^3/ul (0.83-4.51); Lymphocyte % 7.9 % (19-41); Mean Corpuscular Hgb 29.8 pg (27.0-32.0); Mean Corpuscular Volume 82.9 fL (80-94); Mean Platelet Vol. 11.6 fl (6.2-12.0); Monocyte# 0.91 X10^3/uL; Monocyte% 5.8 % (0-10); NRBC Flagged by Analyzer 0 % (0-5); Neutrophil # 13.05 X10^3/uL (2.7-7.7); Neutrophil % 82.9 % (47-70); POSITIVE COUNT YES; Platelet Count 82 K/mm3 (150-450); RBC Distribution Width CV 11.9 % (11.6-14.6); RBC Distribution Width SD 35.3 fl (35.1-43.9); Red Blood Count 4.09 M/mm3 (4.6-6.2); White Blood Count 15.7 K/mm3 (4.4-11.0)
--- NOTE | 2024-08-14 09:25 | PCM.DC ---
Discharge Instructions Diet Discharge Diet: No restrictions DC O2, CPAP, BIPAP needs Home O2 Discharge instructions: No Dressing / Incision Discharge Activity: Return to Normal Activity Weight Bearing Status: Weight bearing as tolerated Dressing / Incision Call your doctor if you observe: Fever of 101 or Higher, Coldness, Increased Pain, Numbness or Tingling, Change in Color, Inability to urinate, Inability to have a bowel movement, Shortness of breath, Dizziness, Fainting spells, Swelling in the ankles, Chest pain, Prolonged hiccupping, Increased palpitations (irregular heartbeat) and Calf discomfort Follow Up Care When: IN 2 WEEKS Test Results: Test results from this visit will be discussed in further detail at your follow-up appointment, if applicable. Discharge Plan Admission Admit Date/Time: 08/11/24 15:40 Attending Provider: Marc Amaya Primary Care Provider: Care Physician,No Primary Consulting Providers: Sudhir Rm; Gabe Bundy; William Mccurdy; Jorge Torres; Alfredo Larkin; Rc Del Angel; Mahendra Fam; Les House; Emilie Garcia NP; Valdemar Snider Discharge Orders/Prescriptions Prescriptions: Continued cyanocobalamin (vitamin B-12) PO DAILY cholecalciferol (vitamin D3) PO DAILY Referrals / Follow Up: Jorge Torres MD [Med Staff - Active Staff] - In 1 Week ([place] please make the Appointment.) Care Physician,No Primary [Primary Care Provider] - Disposition Disposition (needs filled in before D/C Order can be placed): Home, Self Care
[2024-08-14 09:32] VITALS: BP 116/62; PULSE 59; RESP 16; TEMP 36.4; O2SAT 98
[2024-08-14] MEDS: dexAMETHasone 4 MG Tablet 40 MG PO (09:35)
[2024-08-14] MEDS: Pantoprazole Sodium 40 MG Tablet PO (09:35)
[2024-08-14] MEDS: 0.9% Saline Lock 10 ML Syringe IV (09:37)
--- NOTE | 2024-08-14 10:31 | PCM.DC.SUM ---
Providers Date of Admission: 08/11/24 Date of Discharge: 08/14/24 Primary Care Physician: Jessica Primary Care Phys Consultations 08/11/24 18:16 Consult: Oncology/Hematology Routine Consulting Provider: *[facility]) Reason for Consult: new onset severe thrombocytopenia EMERGENT Consult: No MD Notified: Yes Date Notified: 08/11/24 Time Notified: 19:28 Method of Notification: Text Reason For Visit: SEVERE THROMBOCYTOPENIA W/ HEMATURIA Diagnosis Discharge Diagnosis (1) Thrombocytopenia: Status: Acute Code(s): D69.6 - Thrombocytopenia, unspecified (2) Hematuria: Status: Acute Code(s): R31.9 - Hematuria, unspecified Plan Patient is a 24-year-old male who presented [facility] ED on 08/11/2024 with nosebleeds and hematuria. Patient also had melena. 1. New onset severe thrombocytopenia with epistaxis and hematuria and petechial rash in lower extremities ? Admit under inpatient status to PCU. Hematology consulted. Platelet count less than 2 on admit, CBC otherwise unremarkable. Had a recent flulike infection about 3 weeks ago but has resolved now. Denies personal autoimmune disease. No concern for concurrent thrombosis. ITP is certainly a possibility. Presume that hematuria is secondary to very low platelet count. HIV and hepatitis C ordered. Vitamin B12, folate ordered. Given dose of IV Decadron 40 mg in the ED and unit of platelets ordered. Follow-up a.m. CBC. Appreciate further hematology recommendations. 2: Patient's blood platelet count still 2000. Probably did not get the platelet transfusion yet. On dexamethasone 40 mg daily. On PPI protection. 22: Platelet count improved to 17,000 after 1 unit of platelet FACC yesterday. It is better today 44,000. Continue to monitor platelet count. Discussed with Dr. Torres. He completed the treatment for dexamethasone. Follow-up with Dr. Canchola in the office after 1 week. 2: Platelet count improved to 82,000. Benzene Still Utility Operator consult reviewed. Patient had 4 days of high-dose dexamethasone 40 mg daily. First dose was IV. Patient also had IVIG. Patient has mild leukocytosis 15.7 thousand probably due to steroid effect. Purpura is decubitus. On to involve upper thigh and lower trunk return 1 to 2 days ago. Also mucosal 2. Class I obesity ? BMI 31 on admit. Encouraged lifestyle medications. DVT prophylaxis: SCDs CODE STATUS: Full code, verified Medications at Discharge Home Medications cholecalciferol (vitamin D3) PO DAILY supplement 08/11/24 cyanocobalamin (vitamin B-12) PO DAILY 08/11/24 Physical Exam Narrative Seen and examined. Patient has petechial rash on the lower extremity,, lower trunk. Patient denies any chronic autoimmune condition in the family. Does not have personal medical history. He had flulike symptoms about 3 weeks ago with mild cough muscle aches, nausea and diarrhea which got resolved Physical exam General: Alert, Oriented x3, Cooperative. BMI 34.7 kg/m? HEENT: Atraumatic, PERRLA, EOMI, Normocephalic Oral: Mucosal petechial present Neck: Supple, No JVD, Negative Carotid Bruits Chest wall/Lungs: Air entry diminished in bilateral lung bases. No crepitation/rhonchi Cardiovascular: Regular rate, Regular Rhythm, Normal S1, Normal S2, No M/G/R Abdomen: Bowel Sounds Present, Soft, Non Tender, Non-Distended : No dysuria. No renal angle tenderness. No suprapubic tenderness. Extremities: No edema, Capillary Refill Less than 3 Seconds Skin: Petechial rash lower extremity and lower trunk. Musculoskeletal: No Tenderness to Palpation of Joints or Extremities Neurological: Cranial nerves II-XII grossly intact, DTR 2+/4. No acute focal neurological deficit. Psych/Mental Status: Normal Affect, Appropriate. Weight / BMI Weight Weight: 249 lb Body Mass Index (BMI) 34.7 ABG / Lab / Microbiology Data 08/14/24 08:06 08/12/24 03:47 Laboratory: Laboratory Results - last 24 hr 08/14/24 08:06: WBC 15.7 H, RBC 4.09 L, Hgb 12.2 L, Hct 33.9 L, MCV 82.9, MCH 29.8, MCHC 36.0, RDW Std Deviation 35.3, RDW Coeff of Kira 11.9, Plt Count 82 L, MPV 11.6, Immature Gran % (Auto) 3.100 H, Neut % (Auto) 82.9 H, Lymph % (Auto) 7.9 L, [place] % (Auto) 5.8, Eos % (Auto) 0.0, Baso % (Auto) 0.3, Absolute Neuts (auto) 13.1 H, Absolute Lymphs (auto) 1.24, Nucleated RBC % 0 D/C Instructions Discharge Diet: No restrictions Weight Bearing Status: Weight bearing as tolerated Call your doctor if you observe: Fever of 101 or Higher, Coldness, Increased Pain, Numbness or Tingling, Change in Color, Inability to urinate, Inability to have a bowel movement, Shortness of breath, Dizziness, Fainting spells, Swelling in the ankles, Chest pain, Prolonged hiccupping, Increased palpitations (irregular heartbeat) and Calf discomfort DC O2, CPAP, BIPAP Needs Home O2 Discharge instructions: No When: IN 2 WEEKS Meaningful Use Info Meaningful Use Meaningful Use Diagnoses (Choose all that apply): None applicable Ischemic Stroke Statin Dosing Therapy Reference: STATIN DOSE THERAPY REFERENCE: * Patients > 75 years receive moderate or high dose statin therapy. * Patients 75 years or YOUNGER should receive HIGH intensity statin dose unless contraindicated. You will be required to document reason for non-treatment if statin daily dose does not meet guidelines. HIGH DOSE STATIN THERAPY DAILY Atorvastatin > than or = to 40 mg Rosuvastatin > than or = to 20 mg Amlodipine + Atorvastatin > than or = to 2.5/40 mg Ezetimibe + Simvastatin 10/80 mg Simvastatin 80mg Discharge Plan Admission Admit Date/Time: 08/11/24 15:40 Attending Provider: Marc Amaya Primary Care Provider: Care Physician,No Primary Consulting Providers: Sudhir Rm; Gabe Bundy; William Mccurdy; Jorge Torres; Alfredo Larkin; Rc Del Angel; Mahendra Fam; Les House; Emilie Garcia NP; Valdemar Snider Discharge Orders/Prescriptions Prescriptions: Continued cyanocobalamin (vitamin B-12) PO DAILY cholecalciferol (vitamin D3) PO DAILY Referrals / Follow Up: Jorge Torres MD [Med Staff - Active Staff] - In 1 Week (The office will call you to set up the appointment. If you do not hear from them by 2/6 please call the office. ) Care Physician,No Primary [Primary Care Provider] - Disposition Disposition (needs filled in before D/C Order can be placed): Home, Self Care Charges/Coding Visit Charges Inpatient E&M: 50376 Disch Hosp >30min
--- NOTE | 2024-08-14 11:12 | PHA.DC.MR.R ---
Pharmacy [place] Med Reconciliation Pharmacy Service has performed discharge medication reconciliation for this patient. The patient's discharge medication list was reviewed for discrepancies and discrepancies were resolved. Medications at Discharge Home Medications cholecalciferol (vitamin D3) PO DAILY supplement 08/11/24 cyanocobalamin (vitamin B-12) PO DAILY 08/11/24
--- NOTE | 2024-08-14 11:44 | CASEMGMT ---
SAUL met with patient as he is self pay. SAUL let patient know Diane will be coming in to do a Medicaid application with him. SW provided patient with information on [employer], [employer]. [employer] street card, and a list of prescription assistance programs. Crystal Alcaraz FINANCE LEAD DAMIEN
--- NOTE | 2024-08-14 12:16 | CASEMGMT ---
Diane went to patient's room to complete a Medicaid application. Diane stated patient took all of the information and wants to think about it. Diane did give patient her card and she will follow up with him in a couple of days. SAUL had a note that patient's aunt wanted to talk with CM about helping patient complete a Medicaid application. SAUL went to patient's room as patient's Aunt is not listed on his demographics sheet. SAUL asked patient if SW needs to call his aunt about Medicaid application. Patient stated no. He then tried to call her, but she did not answer. SAUL encouraged patient to talk with Diane if she has questions about Medicaid. Crystal Alcaraz LINUX ADMIN ENGINEERBailey QUEZADA
[2024-08-14 12:42] VITALS: BP 138/70; PULSE 64; RESP 16; TEMP 36.4; O2SAT 97
[2024-08-14 14:04] LABS: Pathologist Review Reviewed
[2024-08-14 14:06] LABS: Pathologist Review Reviewed
[2024-08-14 14:06] LABS: Pathologist Review Reviewed
[2024-08-14 14:07] LABS: Pathologist Review Reviewed
--- NOTE | 2024-08-14 14:46 | CHAPLAIN ---
Type of Pastoral Visit _x__ Initial Visit ___ Follow-up Visit ___ On-call Visit ___ General Patient Visit ___ Spiritual Assessment ___ Family Conference ___ Bereavement ___ Rapid Response ___ Code Blue ___ Other (describe below) Pastoral Care Referral From _x__ Patient ___ Family ___ Nurse ___ Physician ___ Private Eye ___ Guest Service Agent ___ Other (describe below) Sacrament/Intervention _x__ Active listening ___ Anointing ___ Faith ___ Bereavement ___ Communion ___ Katie exploration ___ ___ Life review ___ Prayer ___ Reconciliation ___ Sacrament of Sick ___ Supportive presence ___ Wedding ___ Other (describe below) Pastoral Comments patient was dressed and ready for discharge when this visit was made; pt reports that his illness came upon him unexpectedly a week ago and that now he is doing much better after it addressed; pt says that going home is all that he needs today; no other concerns
== END 2024-08-14 13:12 | disposition home or self-care (01) | DRG 813 ==
LOC: ED 15:48 → PCU 17:26
PROVIDERS: Internal Medicine Hematology & Oncology; Nurse Practitioner; Admitting Provider Hospitalist; Emergency Provider Emergency Medicine; Visit Provider Internal Medicine
DX: D69.3 Immune thrombocytopenic purpura (principal); E66.811 Obesity, class 1; F17.210 Nicotine dependence, cigarettes, uncomplicated; Z68.31 Body mass index [BMI] 31.0-31.9, adult
CPT/HCPCS: 36415; 80048; 80053; 80074; 81001; 82607; 82746; 85025; 85610; 85730; 86703; 86900; 86901; 86965; 97802; 99285; P9035; A4216; J1568

== ENCOUNTER 2024-08-17 17:52 | Inpatient (IN) | payer SELFPAY ==
[2024-08-17 17:52] VITALS: BP 151/90; PULSE 88; RESP 22; TEMP 36.6; O2SAT 99; BMI 36.3
--- NOTE | 2024-08-17 18:33 | EX.ED.DYSGE1 ---
HPI History of Present Illness Chief Complaint: Nosebleed Detail of Chief Complaint: Epistaxis left side Informant: patient Onset/Context/Timing Onset: Today and Hours Context: Sudden Onset Timing: Continuous Quality: Epistaxis Location: Left there is Current Severity: Moderate Maximum Severity: Moderate Worsened by: Patient admitted August 10 for thrombocytopenia, platelet count less than Relieved by: Nothing Associated Symptoms Associated Symptoms: Bruising easily. Denies hematuria Narrative Narrative: Patient is a 74-year-old male. He was seen on August 10 discharged on August 14 for epistaxis due to thrombocytopenia of unknown etiology. He also had hematuria at that time. Please should denies bruising easily even though he has multiple bruises. Denies black or maroon-colored stool. Denies blood in his urine. There is bleeding of his gums. There is no history of nasal trauma. He was seen by hematology. Hematology note was reviewed. Discharge summary authored by Dr. Amaya was read. Prior similar symptoms: Yes Recent Illness/Hospitalization: Yes PFSH PFSH Medical History no medical history Home Medications ?Medication ?Instructions ?Recorded ?Last Taken ?Type cholecalciferol (vitamin D3) PO DAILY supplement 08/11/24 Unknown History cyanocobalamin (vitamin B-12) PO DAILY 08/11/24 Unknown History Allergy/AdvReac Type Severity Reaction Status Date / Time No Known Allergies Allergy Verified 08/17/24 17:52 Surgical History no surgical history Social History (Updated 08/17/24 @ 18:[address] Niranjan Hamilton MD) Smoking Status: Current every day smoker tobacco type: cigarettes alcohol intake: current details: 6 pack/week ROS ROS ED Constitutional Constitutional ED: Denies chills, fever(s), subjective, sweats or weight loss Eyes Eyes: Denies blurry vision or change in vision ENT ENT ED: Denies ear pain, rhinorrhea or sore throat Cardiovascular Cardiovascular: Denies chest pain, orthopnea, palpitations, paroxysmal nocturnal dyspnea or racing heartbeat Respiratory/Chest Respiratory/Chest: Denies cough, dyspnea, dyspnea on exertion, orthopnea or paroxysmal nocturnal dyspnea Gastrointestinal Gastrointestinal: Denies abdominal pain, melena, nausea or vomiting Genitourinary Genitourinary ED: Denies dysuria, hematuria or urinary frequency Musculoskeletal Musculoskeletal: Denies back pain or neck pain Integumentary Denies rash Neurologic Neurologic: Denies headache(s), paresthesias or weakness Hematologic/Lymphatic Hematologic/Lymphatic: Reports easy bruising EXAM Physical Exam Const Vital Signs: 08/17/24 17:52 08/17/24 20:38 08/17/24 22:00 Temperature 97.8 F Temperature Source Temporal Pulse Rate 88 71 77 Respiratory Rate 22 H 110 H 18 Blood Pressure 151/90 H 125/71 H 126/84 H Blood Pressure Mean 110 89 98 Pulse Ox 99 98 Oxygen Delivery Method Room Air Room Air Positive well nourished and well developed Constitutional Narrative: BMI is 36.4. General Appearance ED: well developed and NAD; Negative for cyanotic, diaphoretic or pallor HEENT Reports moist mucous membranes HEENT Narrative: Posterior pharynx reveals blood. Patient has packing left side that he placed. The packing is saturated. Eyes PERRL and EOMs intact bilaterally General Eye ED: Negative for pale conjunctiva or scleral icterus Neck no lymphadenopathy, supple and no JVD Resp normal respiratory effort and clear to auscultation bilaterally Cardio regular rate, regular rhythm, S1 normal heart sound, S2 normal heart sound and no murmurs GI non-tender Palpation: soft Back/Spine no CVA tenderness Extremity normal to inspection General Extremety ED: Negative for edema or tenderness General Extremity: Negative for edema Neuro oriented x3 and CN's II-XII intact bilaterally Sensorium / Orientation: alert Psych mental status grossly normal Skin no rashes or lesions noted, no wounds and skin turgor normal Skin Narrative: Multiple bruises noted Upper extremities. Petechiae lower extremity General Skin Exam: Negative for jaundice or pallor MDM MDM MDM Narrative Medical decision making narrative: Patient with epistaxis. With a recent history of thrombocytopenia obtain CBC to assess H&H as well as platelet count. ENT cart was ordered to bedside. Patient require packing. Lab Data Attestation: I reviewed the patient's lab results. Lab results narrative: Platelet count is markedly decreased. When asked what this meant and meant 0-49,000. In light of this we will contact Dr. Berger since patient presents with what appears to be some petechiae lower extremity exam multiple bruises and epistaxis. Labs: Laboratory Results - last 24 hr 08/17/24 08/17/24 18:38 21:22 WBC 12.2 H RBC 4.54 L Hgb 13.8 Hct 36.9 L MCV 81.3 MCH 30.4 MCHC 37.4 H RDW Std Deviation 35.1 RDW Coeff of Kira 12.2 Plt Count TNP TNP MPV TNP Neut % (Auto) Not Reportable Absolute Neuts (auto) 7.5 Absolute Lymphs (auto) 2.70 Total Counted 100 Neutrophils % (Manual) 62 Lymphocytes % (Manual) 22 Monocytes % (Manual) 6 Eosinophils % (Manual) 4 Myelocytes % 6 H Diff Path Review May foll May foll Platelet Estimate MKD DEC Plt Morphology Comment CLUM Polychromasia 1+ Dr. Torres recommended repeat platelet using a blue tube. Patient's platelet count is 1. He requested 40 mg of Decadron IVIG which is weight-based. And pack of platelets. Management Discussion w/another healthcare provider: Hospitalist (Will discuss case with hospitalist. Dr[facility] and Supervisory Air Intercept Controller (Documented under the bottom of the lab data portion of the EMR.) Procedures Other Procedures Procedure(s): Bilateral Rhino Rocket's. A posterior Rhino Rocket was placed on the left and an anterior was placed on the right. Bleeding has stopped Discharge Plan Dx/Rx/DC Orders Clinical Impression: Thrombocytopenia, Petechiae, Epistaxis Disposition Disposition: Acute Care Hospital [facility]
[2024-08-17] MEDS: Mixture 30 ML Bottle 20 ML TOPICAL (18:47)
[2024-08-17 18:55] LABS: Hematocrit 36.9 % (40-54); Hemoglobin 13.8 g/dL (13.0-16.5); Mean Corp Hgb Conc 37.4 g/dL (32-36); Mean Corpuscular Hgb 30.4 pg (27.0-32.0); Mean Corpuscular Volume 81.3 fL (80-94); POSITIVE COUNT YES; POSITIVE MORPHOLOGY YES; RBC Distribution Width CV 12.2 % (11.6-14.6); RBC Distribution Width SD 35.1 fl (35.1-43.9); Red Blood Count 4.54 M/mm3 (4.6-6.2); White Blood Count 12.2 K/mm3 (4.4-11.0)
[2024-08-17 19:43] LABS: Differential Indicated MANUAL DIFF
[2024-08-17 20:15] LABS: Eosinophil 4 % (0-5); Lymphocyte 22 % (19-41); Monocyte 6 % (0-10); Myelocyte 6 % (0-0); Neutrophil-Segmented 62 % (47-70); Total Cells Counted 100 (MANUAL DIFF)
[2024-08-17 20:19] LABS: Platelet Estimate MKD DEC (ADEQ); Polychromasia 1+
[2024-08-17 20:25] LABS: Platelet Morphology CLUM
[2024-08-17 20:26] LABS: Absolute Neutrophil Count 7.5 X10^3/uL (2.0-7.7)
[2024-08-17 20:38] VITALS: BP 125/71; PULSE 71; RESP 110
[2024-08-17 21:32] LABS: POSITIVE COUNT YES
[2024-08-17 22:00] VITALS: BP 126/84; PULSE 77; RESP 18; O2SAT 98
[2024-08-17 22:08] LABS: Differential Indicated SCAN CRITERIA MET
--- NOTE | 2024-08-17 23:16 | PCM.HP.STD ---
HPI - General General Date of Admission: 08/17/24 Date of Service: 08/17/24 Chief Complaint: Epistaxis, persistent HPI Narrative The patient is a 24 y/o M w/ PMHx: Obesity, recent discharge 08/14/2024 following evaluation and treatment for new onset severe thrombocytopenia with epistaxis and hematuria as well as a petechial rash of the lower extremities with previous to this flulike symptoms placed on Decadron therapy as well as PPI prophylactically in addition to platelet transfusions in addition to IVIG with presentation concerning for possible ITP but still unspecified etiology with plan discharge at that time with follow-up with oncology/hematology in 1 week who now re-presents to the [facility] ED on 08/17/2024 with recurrent nosebleed ~ 2 hours prior to ED arrival with mild petechia on the LE otherwise no other concurrent symptoms. He denies any lightheadedness, dizziness, chest pain, dyspnea. Workup in the ED included T97.8, heart rate 88, BP 151/90, respiratory rate 22, 99% on room air with most recent repeat vitals heart rate 77, BP 126/84, respiratory rate 18, 98% on room air, CBC with WBC 12.2, hemoglobin 13.8, platelet significantly decreased noted to be 2 with most recent previous to this 08/14/2024 platelets 82 but has been significantly decreased from this also during recent presentation, similarly was < 2 at that time. In the ED patient was administered Decadron 40 mg IV x 1 as well as IVIG in addition to topical Aric mixture with posterior packing in the left nare and anterior packing of the right nare per ED physician. ED discussed case with hematology/oncology who had requested the Decadron, IVIG and would plan to evaluate in AM. REPLACED BY [facility] Medical History (Updated 08/18/24 @ 00:[address] Mragarita Cedeño MD) Thrombocytopenia Tobacco use Obesity Medical History no medical history Home Medications ?Medication ?Instructions ?Recorded ?Last Taken ?Type cholecalciferol (vitamin D3) PO DAILY supplement 08/11/24 Unknown History cyanocobalamin (vitamin B-12) PO DAILY 08/11/24 Unknown History Allergy/AdvReac Type Severity Reaction Status Date / Time No Known Allergies Allergy Verified 08/17/24 17:52 Family History Mother No problems noted. Father No problems noted. Family History other other (Patient denies any marked maternal or paternal family history including heart disease, diabetes, cancer, blood dyscrasias.) Surgical History No history of previous surgery Surgical History no surgical history Social History household members: family Smoking Status: Current some day smoker tobacco type: cigars per week: 1 alcohol intake: current alcohol intake frequency: a few times a week Alcohol type: beer details: 6 pack/week ROS ROS Narrative Admission Review of Systems: CONSTITUTIONAL: No weight loss, fever, chills, weakness or fatigue. HEENT: + Intractable epistaxis, currently packing in place. Eyes: No visual loss, blurred vision, double vision or yellow sclerae. Ears, Nose, Throat: No hearing loss, sneezing, congestion, runny nose or sore throat. SKIN: No rash or itching, lesions, wounds except + petechiae especially to the distal lower extremities improved since recent initial presentation per patient report as well as staged ecchymoses to the extremities from recent lab draws but no severe acute bruising. CARDIOVASCULAR: No chest pain, chest pressure or chest discomfort, palpitations, edema, orthopnea, syncopal events. RESPIRATORY: No shortness of breath, cough or sputum, wheezing, hemoptysis. GASTROINTESTINAL: No anorexia, nausea, vomiting or diarrhea, abdominal pain, melena, BRBPR. GENITOURINARY: No dysuria, frequency, urgency or retention. NEUROLOGICAL: No headache, dizziness, syncope, paralysis, ataxia, numbness or tingling in the extremities, focal weakness, change in bowel or bladder control, seizure. MUSCULOSKELETAL: No muscle, back pain, joint pain or stiffness. HEMATOLOGIC: No anemia. + Easy bleeding/bruising. LYMPHATICS: No enlarged nodes. No history of splenectomy. PSYCHIATRIC: No history of depression or anxiety. ENDOCRINOLOGIC: No reports of sweating, cold or heat intolerance. No polyuria or polydipsia. ALLERGIES: No history of asthma, hives, eczema or rhinitis. Vital Signs Vital Signs Vital Signs: 08/17/24 17:52 08/17/24 20:38 08/17/24 22:00 Temperature 97.8 F Temperature Source Temporal Pulse Rate 88 71 77 Respiratory Rate 22 H 110 H 18 Blood Pressure 151/90 H 125/71 H 126/84 H Blood Pressure Mean 110 89 98 Pulse Ox 99 98 Oxygen Delivery Method Room Air Room Air Weight Weight: 260 lb 12.909 oz Body Mass Index (BMI) 36.3 Physical Exam Narrative Physical Examination: General: Awake, alert, oriented x 3 and cooperative, seated upright in ED bed, fatigued, denies any symptoms associated with his recent recurrent epistaxis, bleeding is abated with packing in place currently. Skin: Normal color, normal turgor, no icterus, no cyanosis except bilateral lower extremity petechiae which appear improved he notes since recent presentation, very staged ecchymoses to the arms from lab draws that are not new in appearance but stage. HEENT: AT/NC, EOMI, PERRLA, mildly dry MM, naris packed with dried blood coated around the exterior, no active bleeding, no carotid bruits or JVD noted. Lungs: CTA bilaterally, moderate effort, mild decrease BL bases, no rales, ronchi or wheezing. Heart: Regular rate and rhythm; no gallop, rub audible. Abdomen: Soft, obese, NTTP, ND, mildly hyperactive BS, no HSM. Extremities: No cyanosis, clubbing, or edema. Neurological: Patient awake, alert, oriented as noted, cognitive function intact; pupils equally reactive to light and accommodation, cranial nerves grossly normal, moving all 4 extremities, no focal deficits, strength preserved. Psychiatric: Affect appears fatigued otherwise normal, no acute evidence of depressive or anxiety feelings. Results Lab / Micro Data 08/17/24 21:22 Labs: Laboratory Results - last 24 hr 08/17/24 18:38: WBC 12.2 H, RBC 4.54 L, Hgb 13.8, Hct 36.9 L, MCV 81.3, MCH 30.4, MCHC 37.4 H, RDW Std Deviation 35.1, RDW Coeff of Kira 12.2, Plt Count TNP, MPV TNP, Neut % (Auto) Not Reportable, Absolute Neuts (auto) 7.5, Absolute Lymphs (auto) 2.70, Total Counted 100, Neutrophils % (Manual) 62, Lymphocytes % (Manual) 22, Monocytes % (Manual) 6, Eosinophils % (Manual) 4, Myelocytes % 6 H, Diff Path Review May jona, Platelet Estimate MKD DEC, Plt Morphology Comment CLUM, Polychromasia 1+ 08/17/24 21:22: Plt Count TNP, Diff Path Review May jona Assessment & Plan Assessment/Plan (1) Epistaxis: (2) Thrombocytopenia: PLAN: Plan The patient is a 24 y/o M w/ PMHx: Obesity, recent discharge 08/14/2024 following evaluation and treatment for new onset severe thrombocytopenia with epistaxis and hematuria as well as a petechial rash of the lower extremities with previous to this flulike symptoms placed on Decadron therapy as well as PPI prophylactically in addition to platelet transfusions in addition to IVIG with presentation concerning for possible ITP but still unspecified etiology with plan discharge at that time with follow-up with oncology/hematology in 1 week who now re-presents to the [facility] ED on 08/17/2024 with recurrent nosebleed ~ 2 hours prior to ED arrival with mild petechia on the LE otherwise no other concurrent symptoms. #1. Acute recurrent significant thrombocytopenia resulting in recurrent intractable epistaxis, unclear exact etiology for thrombocytopenia: Patient with recent admission, similar presentation however had also hematuria at that time responsive to similar agents initiated in the ED, will admit to medical surgical floor, will continue with planned 1 pack platelet administration however per discussion with blood bank this may take some time as it is coming from alternate facility and there is a backorder, we will continue with repeat dose Decadron in 24 hours as well as repeat dose of IVIG in 24 hours, continue hematology/oncology consultation, will continue to trend CBC. #2. Tobacco Abuse: Encouraged cessation, inpatient consultation per RT, NR if desired. #3. Obesity: Weight loss and lifestyle changes encouraged. #4. DVT prophylaxis: Low risk and also will avoid SCDs/chemoprophylaxis given significant thrombocytopenia concurrently. Charges/Coding Visit Charges Inpatient E&M: 71873 Init Hosp L2
[2024-08-17] MEDS: dexAMETHasone 20 MG/5 ML Vial 40 MG IV (23:51)
[2024-08-18] VITALS (10 sets, daily range): BP systolic 111–149; BP diastolic 55–98; PULSE 64–90; RESP 15–20; TEMP 35.9–37.2; O2SAT 95–99; BMI 35.1
[2024-08-18] MEDS: IMMUNE GLOBULIN IV (00:22)
[2024-08-18] MEDS: Pantoprazole Sodium 20 MG Tablet PO ×3 (01:33→20:58)
[2024-08-18] MEDS: 0.9% Normal Saline (1000mL) 1,000 ML 100 ML IV (02:31)
[2024-08-18 07:14] LABS: Hematocrit 37.4 % (40-54); Hemoglobin 13.8 g/dL (13.0-16.5); Mean Corp Hgb Conc 36.9 g/dL (32-36); Mean Corpuscular Volume 81.3 fL (80-94); POSITIVE COUNT YES; POSITIVE MORPHOLOGY YES; RBC Distribution Width CV 12.5 % (11.6-14.6); RBC Distribution Width SD 35.4 fl (35.1-43.9); White Blood Count 12.2 K/mm3 (4.4-11.0)
[2024-08-18 07:21] LABS: Differential Indicated MANUAL DIFF; Platelet Count < 2 K/mm3 (150-450)
[2024-08-18 07:52] LABS: ALB/GLOB Ratio 0.6 RATIO (0.9-2.4); AST(SGOT) 28 U/L (15-37); Alanine Aminotransfer ALT/SGPT 28 U/L (16-61); Albumin, Serum 3.2 g/dL (3.2-5.0); Alkaline Phosphatase 43 U/L (45-117); Anion Gap 7 (5-15); BUN 20 mg/dL (7-18); BUN/Creat Ratio 23.7 RATIO (10-20); Calcium,Total 8.7 mg/dL (8.5-10.1); Chloride 103 mmol/L (98-107); Creatinine, Serum 0.84 mg/dL (0.70-1.30); EST Glomerular Filtration Rate 117 mL/min (>60); Est Glom Filt Rate - Afr Amer 141 mL/min (>60); Estimated Creatinine Clearance 171.19 ml/min; Globulin 5.3 g/dL (2.2-4.2); Glucose 178 mg/dL (74-106); Potassium 4.5 mmol/L (3.5-5.1); Protein, Total 8.5 g/dL (6.4-8.2); Sodium Level 134 mmol/L (136-145)
[2024-08-18 10:00] LABS: Lymphocyte 6 % (19-41); Metamyelocyte 3 % (0-1); Myelocyte 2 % (0-0); Neutrophil-Band 1 % (0-5); Neutrophil-Segmented 88 % (47-70); Platelet Estimate MKD DEC (ADEQ); Red Cell Morphology NORM C+C NORMAL (NORM C&C); Total Cells Counted 100 (MANUAL DIFF)
[2024-08-18 10:01] LABS: Absolute Neutrophil Count 10.8 X10^3/uL (2.0-7.7)
--- NOTE | 2024-08-18 11:43 | PN.HOSP_ITS ---
Reason for Visit Reason for Visit: Diagnoses Thrombocytopenia, unspecified (08/17/24) Epistaxis (08/17/24) Subjective Subjective Saw patient at bedside this morning. Patient was laying back comfortably in bed and in no acute distress. He did have nasal packing in place bilaterally with dried blood noted around the nares but no active bleeding noted. He denied any other acute concerns this morning. Objective Data Objective Data Vital Signs: Vital Signs Temp Pulse Resp BP Pulse Ox O2 Del Method 97.5 F L 90 20 H 116/77 99 Room Air 08/18/24 07:27 08/18/24 10:59 08/18/24 07:27 08/18/24 07:27 08/18/24 07:27 08/18/24 07:27 Oxygen Delivery Method Room Air Weight: 114.1 kg Body Mass Index (BMI) 35.1 Intake & Output: Intake and Output for Last 24 Hours 08/16/24 08/17/24 08/18/24 23:59 23:59 23:59 Intake Total 0 / 0 Balance 0 / 0 Lab / Micro Data 08/18/24 14:24 08/18/24 06:36 Labs: Laboratory Results - last 24 hr 08/17/24 18:38: WBC 12.2 H, RBC 4.54 L, Hgb 13.8, Hct 36.9 L, MCV 81.3, MCH 30.4, MCHC 37.4 H, RDW Std Deviation 35.1, RDW Coeff of Kira 12.2, Plt Count TNP, MPV TNP, Neut % (Auto) Not Reportable, Absolute Neuts (auto) 7.5, Absolute Lymphs (auto) 2.70, Total Counted 100, Neutrophils % (Manual) 62, Lymphocytes % (Manual) 22, Monocytes % (Manual) 6, Eosinophils % (Manual) 4, Myelocytes % 6 H, Diff Path Review November jona, Platelet Estimate MKD DEC, Plt Morphology Comment CLUM, Polychromasia 1+ 08/17/24 21:22: Plt Count TNP, Diff Path Review Radha tenorio 08/17/24 23:34: Blood Type A NEGATIVE 08/18/24 06:36: WBC 12.2 H, RBC 4.60, Hgb 13.8, Hct 37.4 L, MCV 81.3, MCH 30.0, MCHC 36.9 H, RDW Std Deviation 35.4, RDW Coeff of Kira 12.5, Plt Count < 2 L*, MPV TNP, Neut % (Auto) Not Reportable, Absolute Neuts (auto) 10.8 H, Absolute Lymphs (auto) 0.70 L, Total Counted 100, Neutrophils % (Manual) 88 H, Band Neutrophils % 1, Lymphocytes % (Manual) 6 L, Metamyelocytes % 3 H, Myelocytes % 2 H, Diff Path Review November, Platelet Estimate MKD DEC, RBC Morphology NORM C+C, Sodium 134 L, Potassium 4.5, Chloride 103, Carbon Dioxide 24.0, Anion Gap 7, BUN 20 H, Creatinine 0.84, Estim Creat Clear Calc 171.19, Est GFR (MDRD) Af Amer 141, Est GFR (MDRD) Non-Af 117, BUN/Creatinine Ratio 23.7 H, Glucose 178 H, Calcium 8.7, Total Bilirubin 0.80, AST 28, ALT 28, Alkaline Phosphatase 43 L, T otal Protein 8.5 H, Albumin 3.2, Globulin 5.3 H, Albumin/Globulin Ratio 0.6 L Physical Exam Const alert, oriented x3, no apparent distress, healthy appearing and well nourished Constitutional Narrative: Pleasant young male, class I obesity, laying back comfortably in bed, conversing normally, in no acute distress. General Appearance: cooperative, comfortable, well kempt and well developed HEENT normocephalic, head/scalp atraumatic, hearing grossly normal bilaterally, nasal mucous membranes and turbinates normal and moist oral mucous membranes HEENT Narrative: Nasal packing noted in bilateral nares with dried blood noted around both nares, no active bleeding noted. Eyes PERRL, EOMs intact bilaterally and conjunctivae normal Neck full ROM Chest inspection of chest normal Resp normal respiratory effort, normal air movement, no use of accessory muscles and clear to auscultation bilaterally Cardio regular rate, regular rhythm, no murmurs and peripheral pulses 2+ throughout GI normal to inspection, nondistended, normoactive bowel sounds, soft to palpation, non-tender and non-distended Back/Spine normal ROM Extremity normal to inspection, full ROM and no pedal edema Skin no rashes or lesions noted Neuro moves all extremities and no focal motor deficits Speech: speech normal Motor Exam: strength 5/5 throughout Psych mental status grossly normal Assessment & Plan Assessment/Plan (1) Thrombocytopenia: (2) Epistaxis: PLAN: Plan Patient is a 24-year-old male who presented [facility] ED on 08/17/2024 with recurrent nosebleed. 1. 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 Hematology following. Initially presented in late July with epistaxis and hematuria and platelet count less than 2. Treated with high-dose Decadron for 4 days and 2 doses of IVIG with very good improvement, platelet count 88 on discharge on 08/14. Unfortunately patient had recurrent epistaxis and returned on 08/17, and platelet count was again less than 2. Per hematology, will treat again with high-dose Decadron for 4 days and 2 doses of IVIG. Monitor daily CBC. If patient has good response again, will be planning to discharge on prednisone taper with close outpatient follow-up with hematology. Nasal packing to remain in place until platelet count has improved, hopefully tomorrow. 2. Class I obesity ? BMI 31 on admit. Encouraged lifestyle medications. 3. Elevated blood sugars ? Blood sugars elevated during previous hospitalization on high-dose steroids. Anticipate blood sugars will again be elevated on steroids so we will start sliding scale insulin with meals for now, adjust as needed. DVT prophylaxis: SCDs CODE STATUS: Full code, verified Expected disposition: Home, 2 to 3 days Total clinical time spent by myself addressing the patient's medical issues, reviewing all the data, and collaborating with patient's care team: 35 minutes. Charges/Coding Visit Charges Inpatient E&M: 01317 Subs Hosp L2
[2024-08-18] MEDS: dexAMETHasone 4 MG Tablet 40 MG PO (13:19)
[2024-08-18 13:48] LABS: Pathologist Review Reviewed
[2024-08-18 13:48] LABS: Pathologist Review Reviewed
--- NOTE | 2024-08-18 14:13 | CASEMGMT ---
FABIANA VAUGHAN Readmission Note Previous Admission: 08/11/24-08/14/24 Diagnosis: severe thrombocytopenia with hematuria DC Disposition: Home Current Admission: Admitted 08/17/24 Current Diagnosis: thrombocytopenia epistaxis Pt just recently dc'd to home. While hospitalized, pt had heme c/s, platelet transfusions, IVIG and decadron therapy. Pt dc'd with f/u to Dr. Torres. Pt returned to [facility] for epistaxis of left side with sudden onset. FABIANA VAUGHAN into pt room, pt lying in bed with packing to nares. Pt states he has a f/u appt with Dr. Torres on Wednesday. He did obtain his Vitamin B12 and D3 and has been taking them at home. Pt states he has not yet set up a PCP appt but does have a pamphlet from the last admission. Pt denies need with help with setting this up. Pt has been seen by [employer] regarding his self pay. Pt is I in ADL/IADLs. Pt denies any concerns returning home. DC Plan: Home
[2024-08-18] MEDS: Acetaminophen 325 MG Tablet 650 MG PO ×2 (14:36→20:58)
[2024-08-18 14:37] LABS: Hematocrit 35.7 % (40-54); Hemoglobin 13.5 g/dL (13.0-16.5); Mean Corp Hgb Conc 37.8 g/dL (32-36); Mean Corpuscular Hgb 30.5 pg (27.0-32.0); Mean Corpuscular Volume 80.6 fL (80-94); POSITIVE COUNT YES; RBC Distribution Width CV 12.2 % (11.6-14.6); RBC Distribution Width SD 34.7 fl (35.1-43.9); Red Blood Count 4.43 M/mm3 (4.6-6.2); White Blood Count 16.6 K/mm3 (4.4-11.0)
[2024-08-18 14:38] LABS: Platelet Count < 2 K/mm3 (150-450)
--- NOTE | 2024-08-18 15:17 | CHAPLAIN ---
Type of Pastoral Visit _x__ Initial Visit ___ Follow-up Visit ___ On-call Visit ___ General Patient Visit ___ Spiritual Assessment ___ Family Conference ___ Bereavement ___ Rapid Response ___ Code Blue ___ Other (describe below) Pastoral Care Referral From _x__ Patient ___ Family ___ Nurse ___ Physician ___ Bowling Ball Engraver ___ Spinning Supervisor ___ Other (describe below) Sacrament/Intervention ___ Active listening ___ Anointing ___ Bahai ___ Bereavement ___ Communion ___ Katie exploration ___ ___ Life review ___ Prayer ___ Reconciliation ___ Sacrament of Sick _x__ Supportive presence ___ Wedding ___ Other (describe below) Pastoral Comments patient was just seen on Wednesday for the same condition; pt just received medications for a bad headache and admits to the same; pt is offered support but states that he feels he will be fine and that he would prefer to rest now
[2024-08-18] MEDS: Insulin Lispro 100 UNIT/ML INSULN.PEN SC (15:54)
[2024-08-18 16:17] LABS: Bedside Glucose 205 mg/dL (74-106)
[2024-08-18] MEDS: 0.9% Saline Lock 10 ML Syringe IV ×2 (18:51→19:02)
[2024-08-18] MEDS: Morphine 2 MG/ML Syringe IV (18:51)
[2024-08-18] MEDS: Ondansetron 4 MG/2 ML Vial IV (19:02)
--- NOTE | 2024-08-18 19:17 | PCM.HOSP.N ---
Hospitalist Note Patient requesting nasal packing out. Plt still not improved. Will redose with IVIG dose now. Discussed with proof machine operator supervisor and Dr. Mars Jaramillo is on for ENT in AM. Ideally, would like to await am labs and reassess for d/c packing if plts improved also with the idea that ENT would be readily available.
[2024-08-18] MEDS: Immune Globulin 20 gm 20 GM/200 ML VIAL IV ×2 (20:03→23:20)
[2024-08-18] MEDS: Temazepam 15 MG Capsule PO (20:58)
[2024-08-19] VITALS (11 sets, daily range): BP systolic 120–156; BP diastolic 78–96; PULSE 62–95; RESP 16–18; TEMP 36.4–37.1; O2SAT 94–98; BMI 35.1
[2024-08-19] MEDS: Immune Globulin 20 gm 20 GM/200 ML VIAL IV (00:26)
[2024-08-19] MEDS: Acetaminophen 325 MG Tablet 650 MG PO (06:24)
[2024-08-19] MEDS: Immune Globulin 10 gm 10 GM/100 ML VIAL IV (06:29)
[2024-08-19] MEDS: Insulin Lispro 100 UNIT/ML INSULN.PEN SC ×2 (06:40→18:19)
[2024-08-19 07:20] LABS: Bedside Glucose 166 mg/dL (74-106)
[2024-08-19 08:02] LABS: Hematocrit 34.8 % (40-54); Hemoglobin 12.8 g/dL (13.0-16.5); Mean Corp Hgb Conc 36.8 g/dL (32-36); Mean Corpuscular Hgb 29.8 pg (27.0-32.0); Mean Corpuscular Volume 80.9 fL (80-94); POSITIVE COUNT YES; POSITIVE MORPHOLOGY YES; RBC Distribution Width CV 12.5 % (11.6-14.6); RBC Distribution Width SD 35.5 fl (35.1-43.9); White Blood Count 20.1 K/mm3 (4.4-11.0)
[2024-08-19 08:06] LABS: Platelet Count 2 K/mm3 (150-450); Scan Indicated on CBC? Y/N YES- FLAGS NOTED
[2024-08-19] MEDS: dexAMETHasone 4 MG Tablet 40 MG PO (08:12)
[2024-08-19] MEDS: Pantoprazole Sodium 20 MG Tablet PO ×2 (08:12→21:23)
[2024-08-19] MEDS: Immune Globulin 5 GM 5 GM/50 ML VIAL IV (08:14)
--- NOTE | 2024-08-19 10:32 | PCM.PN.HOSP ---
Reason for Visit Reason for Visit: Diagnoses Thrombocytopenia, unspecified (08/17/24) Epistaxis (08/17/24) Subjective Subjective Saw patient at bedside this morning. Patient had notable swelling in his face with some redness bilaterally, mild to moderately worse from yesterday. Denies any fevers or chills. States the pain especially in the left side of his face has been controlled with pain medication since yesterday evening. Platelet count noted to be 2 this morning, very slightly improved. Patient with no active bleeding noted around the nasal packing. Given the packing has been in place for about 36 hours, had concern for patient developing infection unless nasal packing was removed. With nurse at the bedside, I deflated the balloons bilaterally and removed his nasal packing. He had no active bleeding after they removed. Will continue to monitor closely. Objective Data Objective Data Vital Signs: Vital Signs Temp Pulse Resp BP Pulse Ox O2 Del Method 97.6 F L 79 16 156/96 H 96 Room Air 08/19/24 09:17 08/19/24 09:17 08/19/24 09:17 08/19/24 09:17 08/19/24 09:17 08/19/24 09:17 Oxygen Delivery Method Room Air Weight: 114.1 kg Body Mass Index (BMI) 35.1 Intake & Output: Intake and Output for Last 24 Hours 08/17/24 08/18/24 08/19/24 23:59 23:59 23:59 Intake Total 1950.00 / 1950.00 900.00 / 900.00 Balance 1950.00 / 1950.00 900.00 / 900.00 Lab / Micro Data 08/19/24 06:37 08/18/24 06:36 Labs: Laboratory Results - last 24 hr 08/17/24 18:38: Diff Path Review Reviewed 08/17/24 21:22: Diff Path Review Reviewed 08/18/24 14:24: WBC 16.6 H, RBC 4.43 L, Hgb 13.5, Hct 35.7 L, MCV 80.6, MCH 30.5, MCHC 37.8 H, RDW Std Deviation 34.7 L, RDW Coeff of Kira 12.2, Plt Count < 2 L*, MPV TNP, Diff Path Review November08/18/24 15:49: POC Glucose 205 H 08/19/24 06:37: WBC 20.1 H, RBC 4.30 L, Hgb 12.8 L, Hct 34.8 L, MCV 80.9, MCH 29.8, MCHC 36.8 H, RDW Std Deviation 35.5, RDW Coeff of Kira 12.5, Plt Count 2 L*, MPV TNP, Differential Comment , Diff Path Review November08/19/24 06:39: POC Glucose 166 H Physical Exam Const alert, oriented x3, no apparent distress, healthy appearing and well nourished Constitutional Narrative: Pleasant young male, class I obesity, laying back in bed but mildly uncomfortable due to nasal packing, otherwise conversing normally and in no acute distress. General Appearance: cooperative, comfortable, well kempt and well developed HEENT normocephalic, head/scalp atraumatic, hearing grossly normal bilaterally, nasal mucous membranes and turbinates normal and moist oral mucous membranes HEENT Narrative: Nasal packing noted in bilateral nares with dried blood noted around both nares, no active bleeding noted. Facial flushing noted bilaterally with mild facial swelling noted. Eyes PERRL, EOMs intact bilaterally and conjunctivae normal Neck full ROM Chest inspection of chest normal Resp normal respiratory effort, normal air movement, no use of accessory muscles and clear to auscultation bilaterally Cardio regular rate, regular rhythm, no murmurs and peripheral pulses 2+ throughout GI normal to inspection, nondistended, normoactive bowel sounds, soft to palpation, non-tender and non-distended Back/Spine normal ROM Extremity normal to inspection, full ROM and no pedal edema Skin no rashes or lesions noted Neuro moves all extremities and no focal motor deficits Speech: speech normal Motor Exam: strength 5/5 throughout Psych mental status grossly normal Assessment & Plan Assessment/Plan (1) Thrombocytopenia: (2) Epistaxis: PLAN: Plan Patient is a 24-year-old male who presented [facility] ED on 08/17/2024 with recurrent nosebleed. 1. 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 Hematology following. Initially presented in late July with epistaxis and hematuria and platelet count less than 2. Treated with high-dose Decadron for 4 days and 2 doses of IVIG with very good improvement, platelet count 88 on discharge on 08/14. Unfortunately patient had recurrent epistaxis and returned on 08/17, and platelet count was again less than 2. Per hematology, will treat again with high-dose Decadron for 4 days and 2 doses of IVIG. Monitor daily CBC. If patient has good response again, will be planning to discharge on prednisone taper with close outpatient follow-up with hematology. Patient with increasing pain, mild facial swelling and erythema noted with nasal packing in place so to minimize risk of infection, decision was made on 08/19 to remove nasal packing despite platelet count of only 2. Removed without issue and no active bleeding noted. Will continue to monitor closely. Will start IV Unasyn prophylactically at this time. 2. Class I obesity ? BMI 31 on admit. Encouraged lifestyle medications. 3. Elevated blood sugars ? Blood sugars elevated during previous hospitalization on high-dose steroids. Anticipate blood sugars will again be elevated on steroids so we will start sliding scale insulin with meals for now, adjust as needed. DVT prophylaxis: SCDs CODE STATUS: Full code, verified Expected disposition: Home, 2 to 3 days Total clinical time spent by myself addressing the patient's medical issues, reviewing all the data, and collaborating with patient's care team: 35 minutes. Charges/Coding Visit Charges Inpatient E&M: 68881 Subs Hosp L2
[2024-08-19] MEDS: Ampicillin/Sulbactam 3 GM in 0.9% Normal Saline (100mL MB+) 100 ML IV ×2 (12:10→18:18)
[2024-08-19 12:48] LABS: Bedside Glucose 145 mg/dL (74-106)
[2024-08-19 18:25] LABS: Bedside Glucose 191 mg/dL (74-106)
[2024-08-20] VITALS (7 sets, daily range): BP systolic 124–133; BP diastolic 64–86; PULSE 71–89; RESP 16–18; TEMP 36.4–37.1; O2SAT 95–98; BMI 35.1
[2024-08-20] MEDS: Ampicillin/Sulbactam 3 GM in 0.9% Normal Saline (100mL MB+) 100 ML IV ×4 (00:52→17:20)
[2024-08-20 06:50] LABS: Hematocrit 32.2 % (40-54); Hemoglobin 11.8 g/dL (13.0-16.5); Mean Corp Hgb Conc 36.6 g/dL (32-36); Mean Corpuscular Hgb 30.6 pg (27.0-32.0); Mean Corpuscular Volume 83.4 fL (80-94); POSITIVE COUNT YES; RBC Distribution Width CV 12.9 % (11.6-14.6); RBC Distribution Width SD 37.4 fl (35.1-43.9); Red Blood Count 3.86 M/mm3 (4.6-6.2); White Blood Count 24.1 K/mm3 (4.4-11.0)
[2024-08-20 06:58] LABS: Platelet Count < 2 K/mm3 (150-450); Scan Indicated on CBC? Y/N YES- FLAGS NOTED
[2024-08-20 07:04] LABS: Bedside Glucose 140 mg/dL (74-106)
[2024-08-20 07:22] LABS: Anion Gap 6 (5-15); BUN 29 mg/dL (7-18); BUN/Creat Ratio 32.5 RATIO (10-20); Calcium,Total 8.5 mg/dL (8.5-10.1); Chloride 104 mmol/L (98-107); Creatinine, Serum 0.89 mg/dL (0.70-1.30); EST Glomerular Filtration Rate 109 mL/min (>60); Est Glom Filt Rate - Afr Amer 132 mL/min (>60); Estimated Creatinine Clearance 161.64 ml/min; Glucose 142 mg/dL (74-106); Potassium 4.3 mmol/L (3.5-5.1); Sodium Level 135 mmol/L (136-145)
[2024-08-20] MEDS: dexAMETHasone 4 MG Tablet 40 MG PO (09:12)
[2024-08-20] MEDS: Pantoprazole Sodium 20 MG Tablet PO (09:12)
--- NOTE | 2024-08-20 10:37 | PCM.PN.HOSP ---
Reason for Visit Reason for Visit: Diagnoses Thrombocytopenia, unspecified (08/17/24) Epistaxis (08/17/24) Subjective Subjective Saw patient at bedside this morning. Patient was sitting up comfortably in bed and doing work on his laptop. He reported very mild intermittent blood loss from bilateral nares since removal of nasal packing yesterday morning. Stated his facial pain and swelling is improving yesterday. Denies any new pain or discomfort. Denies any fevers or chills. No other new concerns today. Objective Data Objective Data Vital Signs: Vital Signs Temp Pulse Resp BP Pulse Ox O2 Del Method 98.7 F 89 16 130/86 H 95 Room Air 08/20/24 03:31 08/20/24 03:31 08/20/24 03:31 08/20/24 03:31 08/20/24 08:01 08/20/24 08:01 Oxygen Delivery Method Room Air Weight: 114.2 kg Body Mass Index (BMI) 35.1 Intake & Output: Intake and Output for Last 24 Hours 08/18/24 08/19/24 08/20/24 23:59 23:59 23:59 Intake Total 1949.1949. 3124.00 / 3124.00 774 / 774 Balance 1949.1949. 3124.00 / 3124.00 774 / 774 Lab / Micro Data 08/20/24 06:21 08/20/24 06:21 Labs: Laboratory Results - last 24 hr 08/19/24 12:31: POC Glucose 145 H 08/19/24 18:08: POC Glucose 191 H 08/20/24 06:21: WBC 24.1 H, RBC 3.86 L, Hgb 11.8 L, Hct 32.2 L, MCV 83.4, MCH 30.6, MCHC 36.6 H, RDW Std Deviation 37.4, RDW Coeff of Kira 12.9, Plt Count < 2 L*, MPV TNP, Diff Path Review November, Sodium 135 L, Potassium 4.3, Chloride 104, Carbon Dioxide 25.0, Anion Gap 6, BUN 29 H, Creatinine 0.89, Estim Creat Clear Calc 161.64, Est GFR (MDRD) Af Amer 132, Est GFR (MDRD) Non-Af 109, BUN/Creatinine Ratio 32.5 H, Glucose 142 H, Calcium 8.5 08/20/24 06:39: POC Glucose 140 H Physical Exam Const alert, oriented x3, no apparent distress, healthy appearing and well nourished Constitutional Narrative: Pleasant young male, class I obesity, sitting up comfortably in bed, conversing normally, in no acute distress. General Appearance: cooperative, comfortable, well kempt and well developed HEENT normocephalic, head/scalp atraumatic, hearing grossly normal bilaterally, nasal mucous membranes and turbinates normal and moist oral mucous membranes HEENT Narrative: Nasal packing now removed. Dried blood noted around bilateral nares, stable. Eyes PERRL, EOMs intact bilaterally and conjunctivae normal Neck full ROM Chest inspection of chest normal Resp normal respiratory effort, normal air movement, no use of accessory muscles and clear to auscultation bilaterally Cardio regular rate, regular rhythm, no murmurs and peripheral pulses 2+ throughout GI normal to inspection, nondistended, normoactive bowel sounds, soft to palpation, non-tender and non-distended Back/Spine normal ROM Extremity normal to inspection, full ROM and no pedal edema Skin no rashes or lesions noted Neuro moves all extremities and no focal motor deficits Speech: speech normal Motor Exam: strength 5/5 throughout Psych mental status grossly normal Assessment & Plan Assessment/Plan (1) Thrombocytopenia: (2) Epistaxis: PLAN: Plan Patient is a 24-year-old male who presented [facility] ED on 08/17/2024 with recurrent nosebleed. 1. 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 Hematology following. Initially presented in late July with epistaxis and hematuria and platelet count less than 2. Treated with high-dose Decadron for 4 days and 2 doses of IVIG with very good improvement, platelet count 88 on discharge on 08/14. Unfortunately patient had recurrent epistaxis and returned on 08/17, and platelet count was again less than 2. Per hematology, will treat again with high-dose Decadron for 4 days and 2 doses of IVIG. Patient had increasing pain, mild facial swelling and erythema noted with nasal packing so packing was removed on 08/19 despite platelet count remaining low. Started on IV Unasyn to cover for head/neck infection from nasal packing remaining in place for about 36 hours. Very mild intermittent bleeding from nose noted that is manageable. Unfortunately, patient has not had any response to the high-dose steroids or IVIG as of 08/20, platelet count remains less than 2. Will give 1 unit of platelets on 08/20. 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 Patient requesting transfer to [facility] and transfer initiated. 2. Class I obesity ? BMI 31 on admit. Encouraged lifestyle medications. 3. Elevated blood sugars ? Blood sugars elevated during previous hospitalization on high-dose steroids. Treating with sliding scale insulin with meals for now, adjust as needed. DVT prophylaxis: SCDs CODE STATUS: Full code, verified Expected disposition: Transfer to [facility] Total clinical time spent by myself addressing the patient's medical issues, reviewing all the data, and collaborating with patient's care team: 35 minutes. Charges/Coding Visit Charges Inpatient E&M: 83883 Subs Hosp L2
[2024-08-20 12:14] LABS: Bedside Glucose 203 mg/dL (74-106)
[2024-08-20] MEDS: Insulin Lispro 100 UNIT/ML INSULN.PEN SC ×2 (12:27→17:22)
--- NOTE | 2024-08-20 16:36 | DCINST_ITS ---
Discharge Instructions Diet Discharge Diet: No restrictions DC O2, CPAP, BIPAP needs Home O2 Discharge instructions: No Dressing / Incision Discharge Activity: No Restrictions Follow Up Care Test Results: Test results from this visit will be discussed in further detail at your follow- up appointment, if applicable. Discharge Plan Admission Admit Date/Time: 08/17/24 23:16 Primary Reason for Your Visit: epistaxis Attending Provider: Valdemar Snider Primary Care Provider: Care Physician,No Primary Consulting Providers: Iker Nunez; Greg Torres; Marisa Cantrell; Ambrocio Trent; Ly Urbano; Jason Meyre; Kenneth Medley; Margarita Cedeño Discharge Orders/Prescriptions Prescriptions: Continued cyanocobalamin (vitamin B-12) PO DAILY cholecalciferol (vitamin D3) PO DAILY Referrals / Follow Up: Care Physician,No Primary [Primary Care Provider] - Disposition Disposition (needs filled in before D/C Order can be placed): Acute Care Hospital
--- NOTE | 2024-08-20 16:38 | PCM.DC.SUM ---
Providers Date of Admission: 08/17/24 Date of Discharge: 08/20/24 Primary Care Physician: Jessica Primary Care Phys Consultations 08/18/24 00:48 Consult: Oncology/Hematology Routine Consulting Provider: DAVID [facility] [place] Reason for Consult: Recurrent thrombocytopenia, epistaxis. EMERGENT Consult: No MD Notified: Yes Date Notified: 08/17/24 Time Notified: 23:18 Method of Notification: ED Physician Initiated Reason For Visit: THROMBOCYTOPENIA EPISTAXIS Diagnosis Discharge Diagnosis (1) Thrombocytopenia: Status: Acute Code(s): D69.6 - Thrombocytopenia, unspecified (2) Epistaxis: Status: Acute Code(s): R04.0 - Epistaxis Medications at Discharge Home Medications cholecalciferol (vitamin D3) PO DAILY supplement 08/11/24 cyanocobalamin (vitamin B-12) PO DAILY 08/11/24 Hospital Course Operations None Procedures None Summary of Care Provided Minutes Spent on Discharge: 35 Hospital Course: Patient is a 24-year-old male who presented [facility] ED on 08/17/2024 with recurrent nosebleed. Hospital course as noted below. Transferred to [facility] on 08/20 for further care. 1. 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 Hematology followed. Initially presented in late July with epistaxis and hematuria and platelet count less than 2. Treated with high-dose Decadron for 4 days and 2 doses of IVIG with very good improvement, platelet count 88 on discharge on 08/14. Unfortunately patient had recurrent epistaxis and returned on 08/17, and platelet count was again less than 2. Per hematology, will treat again with high-dose Decadron for 4 days and 2 doses of IVIG. Patient had increasing pain, mild facial swelling and erythema noted with nasal packing so packing was removed on 08/19 despite platelet count remaining low. Started on IV Unasyn to cover for head/neck infection from nasal packing remaining in place for about 36 hours. Very mild intermittent bleeding from nose noted that is manageable. Unfortunately, patient has not had any response to the high-dose steroids or IVIG as of 08/20, platelet count remains less than 2. Will give 1 unit of platelets on 08/20. 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 Transferred to [facility] on 08/20 for further care. 2. Class I obesity ? BMI 31 on admit. Encouraged lifestyle medications. 3. Elevated blood sugars ? Blood sugars elevated during previous hospitalization on high-dose steroids. Treated with sliding scale insulin with meals while here. Total clinical time spent by myself addressing the patient's medical issues, reviewing all the data, and collaborating with patient's care team: 35 minutes. Physical Exam Const alert, oriented x3, no apparent distress, healthy appearing and well nourished Constitutional Narrative: Pleasant young male, class I obesity, sitting up comfortably in bed, conversing normally, in no acute distress. General Appearance: cooperative, comfortable, well kempt and well developed HEENT normocephalic, head/scalp atraumatic, hearing grossly normal bilaterally, nasal mucous membranes and turbinates normal and moist oral mucous membranes HEENT Narrative: Nasal packing now removed. Dried blood noted around bilateral nares, stable. Eyes PERRL, EOMs intact bilaterally and conjunctivae normal Neck full ROM Chest inspection of chest normal Resp normal respiratory effort, normal air movement, no use of accessory muscles and clear to auscultation bilaterally Cardio regular rate, regular rhythm, no murmurs and peripheral pulses 2+ throughout GI normal to inspection, nondistended, normoactive bowel sounds, soft to palpation, non-tender and non-distended Back/Spine normal ROM Extremity normal to inspection, full ROM and no pedal edema Skin no rashes or lesions noted Neuro moves all extremities and no focal motor deficits Speech: speech normal Motor Exam: strength 5/5 throughout Psych mental status grossly normal Weight / BMI Weight Weight: 114.2 kg Body Mass Index (BMI) 35.1 ABG / Lab / Microbiology Data 08/20/24 06:21 08/20/24 06:21 Laboratory: Laboratory Results - last 24 hr 08/19/24 18:08: POC Glucose 191 H 08/20/24 06:21: WBC 24.1 H, RBC 3.86 L, Hgb 11.8 L, Hct 32.2 L, MCV 83.4, MCH 30.6, MCHC 36.6 H, RDW Std Deviation 37.4, RDW Coeff of Kira 12.9, Plt Count < 2 L*, MPV TNP, Diff Path Review May , Sodium 135 L, Potassium 4.3, Chloride 104, Carbon Dioxide 25.0, Anion Gap 6, BUN 29 H, Creatinine 0.89, Estim Creat Clear Calc 161.64, Est GFR (MDRD) Af Amer 132, Est GFR (MDRD) Non-Af 109, BUN/Creatinine Ratio 32.5 H, Glucose 142 H, Calcium 8.5 08/20/24 06:39: POC Glucose 140 H 08/20/24 11:55: POC Glucose 203 H D/C Instructions Discharge Diet: No restrictions DC O2, CPAP, BIPAP Needs Home O2 Discharge instructions: No Meaningful Use Info Meaningful Use Meaningful Use Diagnoses (Choose all that apply): None applicable Ischemic Stroke Statin Dosing Therapy Reference: STATIN DOSE THERAPY REFERENCE: * Patients > 75 years receive moderate or high dose statin therapy. * Patients 75 years or YOUNGER should receive HIGH intensity statin dose unless contraindicated. You will be required to document reason for non-treatment if statin daily dose does not meet guidelines. HIGH DOSE STATIN THERAPY DAILY Atorvastatin > than or = to 40 mg Rosuvastatin > than or = to 20 mg Amlodipine + Atorvastatin > than or = to 2.5/40 mg Ezetimibe + Simvastatin 10/80 mg Simvastatin 80mg Discharge Plan Admission Admit Date/Time: 08/17/24 23:16 Primary Reason for Your Visit: epistaxis Attending Provider: Valdemar Snider Primary Care Provider: Care Physician,No Primary Consulting Providers: Iker Nunez; Greg Torres; Marisa Cantrell; Ambrocio Trent; Ly Urbano; Jason Meyer; Kenneth Medley; Margarita Cedeño Discharge Orders/Prescriptions Prescriptions: Continued cyanocobalamin (vitamin B-12) PO DAILY cholecalciferol (vitamin D3) PO DAILY Referrals / Follow Up: Care Physician,No Primary [Primary Care Provider] - Disposition Disposition (needs filled in before D/C Order can be placed): Acute Care Hospital Charges/Coding Visit Charges Inpatient E&M: 37574 Disch Hosp >30min
[2024-08-20 17:48] LABS: Bedside Glucose 184 mg/dL (74-106)
[2024-08-21 13:27] LABS: Pathologist Review Reviewed
[2024-08-21 13:28] LABS: Pathologist Review Reviewed
[2024-08-21 13:40] LABS: Pathologist Review Reviewed
[2024-08-21 13:41] LABS: Pathologist Review Reviewed
== END 2024-08-20 17:49 | disposition short-term general hospital (02) | DRG 151 ==
LOC: ED 23:01 → MS3 23:30
PROVIDERS: Admitting Provider Family Medicine; Emergency Provider Emergency Medicine; Referring Provider Emergency Medicine; Visit Provider Hospitalist
DX: R04.0 Epistaxis (principal); D69.3 Immune thrombocytopenic purpura; Z68.35 Body mass index [BMI] 35.0-35.9, adult; F17.210 Nicotine dependence, cigarettes, uncomplicated; F10.90 Alcohol use, unspecified, uncomplicated; E66.9 Obesity, unspecified
CPT/HCPCS: 36415; 80048; 80053; 82962; 85025; 85027; 86900; 86901; 86965; 99284; P9035; A4216; J0295; J1568; J2405